=== PATIENT | male | born 1935 | race Caucasian/White ===

== ENCOUNTER 2016-08-11 13:55 | Inpatient (IN) | payer OTHER, MEDICARE ==
[~2016-08-11] VITALS: Ht 165.1 cm; Wt 90.7 kg
[~2016-08-11 13:55] MED LIST: ASPI-618 PO; CYCL5TAB PO; DEXL60CA3 PO; FERR325T22 PO; FURO20TA4 PO; GABA-536 PO; LOSA50TA21 PO
[2016-08-11 14:54] LABS: *BILIRUBIN,URIN NEGATIVE (NEGATIVE); *BLOOD, URINE 2+ (NEGATIVE); *CLARITY,URINE CLEAR (CLEAR); *COLOR,URINE YELLOW (YELLOW); *KETONES,URINE NEGATIVE (NEGATIVE); *PROTEIN,URINE 1+ (NEGATIVE); *UROBILINOGEN,URINE 0.2 E.U./dl (NORMAL); LEUKOCYTE ESTERASE ,URINE NEGATIVE (NEGATIVE); NITRITE, URINE NEGATIVE (NEGATIVE); PH,URINE 5.5 (5.0-8.0); UGLUCOSE NEGATIVE (NEGATIVE)
[2016-08-11 14:58] LABS: BASOPHILS % (AUTO) 0.3 % (0.0-2.0); EOSINOPHILS # (AUTO) 0.2 K/uL (0.0-0.7); EOSINOPHILS % (AUTO) 1.9 % (0.0-7.0); HEMATOCRIT 39.3 % (36.7-47.1); HEMOGLOBIN 13.4 g/dL (12.5-16.3); LYMPHOCYTES % (AUTO) 24.6 % (20.5-51.5); MEAN CORPUSCULAR HEMOGLOBIN 29.8 uug (23.8-33.4); MEAN CORPUSCULAR HGB CONC 34 g/dL (32.5-36.3); MONOCYTES # (AUTO) 0.5 K/uL (2.0-10.0); MONOCYTES % (AUTO) 6.3 % (0.0-11.0); NEUTROPHILS # (AUTO) 5.4 K/uL (1.8-8.9); NEUTROPHILS % (AUTO) 66.9 % (38.5-71.5); PLATELET COUNT (AUTO) 130 K/uL (152-348); RED BLOOD CELL COUNT(AUTO) 4.47 MIL/uL (4.06-5.63); RED CELL DISTRIBUTION WIDTH 14.1 % (12.1-16.2); WHITE BLOOD COUNT (AUTO) 8.1 K/uL (3.6-10.2)
[2016-08-11] MEDS ORDERED: AMPICILLIN IV 3 G in IV NORMAL SALINE 100 ML IV ONE (15:00)
[2016-08-11] MEDS ORDERED: KETOROLAC TROMETHAMINE 30 MG INJ IM ONE (15:00)
[2016-08-11] MEDS ORDERED: KETOROLAC TROMETHAMINE 60 MG INJ IM ONE (15:00)
[2016-08-11 15:06] LABS: CALCIUM 9.2 mg/dL (8.5-10.1); POTASSIUM 4.2 mmol/L (3.5-5.1)
[2016-08-11 15:17] LABS: MUCUS,URINE FEW /LPF (0-FEW); WBC,URINE 0-3 /HPF (0-3)
[2016-08-11] MEDS ORDERED: KETOROLAC TROMETHAMINE 30 MG INJ ONE (15:22)
[2016-08-11] MEDS ORDERED: PIPERACILLIN/TAZOBACTAM/D5W 50 ML IV ONE (15:22)
[2016-08-11 15:23] LABS: ALBUMIN 3.8 g/dL (3.4-5.0); BILIRUBIN,TOTAL 0.4 mg/dL (0.2-1.0); TOTAL PROTEIN, SERUM 7.9 g/dL (6.4-8.2)
--- NOTE | 2016-08-11 16:05 | NUR ---
Attempted to give report to tele floor, assigned nurse to call back.
[2016-08-11] MEDS ORDERED: HYDROCODONE/APAP 5-325MG TABLET PO ONE (16:15)
[2016-08-11] MEDS ORDERED: HYDROCODONE/APAP 5-325MG TABLET ONE (16:22)
--- NOTE | 2016-08-11 16:35 | NUR ---
Attempted to give report to tele floor again, assigned nurse unable to take report at this time per charge nurse. Pt resting in [facility] with NAD noted.
--- NOTE | 2016-08-11 16:42 | NUR ---
SBAR report given to tele floor.
[2016-08-11] MEDS ORDERED: TEMAZEPAM 7.5 MG CAPSULE PO PRN (16:45)
[2016-08-11] MEDS ORDERED: Z GUARD REMEDY PASTE 57 GM TUBE TOP PRN (16:45)
[2016-08-11] MEDS ORDERED: ACETAMINOPHEN 325 MG TABLET PO PRN (16:45)
[2016-08-11] MEDS ORDERED: MORPHINE SULFATE 2 MG/1 ML DISP.SYRIN IV PRN (16:45)
[2016-08-11] MEDS ORDERED: MAGNESIUM HYDROXIDE 30 ML LIQUID UDC PO PRN (16:45)
[2016-08-11] MEDS ORDERED: ONDANSETRON 4 MG/2 ML VIAL IV PRN (16:45)
--- NOTE | 2016-08-11 16:55 | NUR ---
Pt trans to tele, NAD noted.
--- NOTE | 2016-08-11 16:57 | NUR ---
Clinical Pharmacy Note: Vancomycin Dosing per Pharmacy Subjective: Vancomycin IV to start on this 81 male patient for cellulitis. Objective: BUN 15/Scr 1.0 WBC 8.1 Temperature 97.6 Assessment/Plan: Will start vancomycin 1250mg IVPB Q19hr for a predicted vancomycin steady state trough level of 15.6 mcg/ml. Will draw a vancomycin trough level prior to the 4th dose of vancomycin (not ordered yet). Will monitor renal function and adjust vancomycin dose, if needed, should renal function change significantly. Will follow daily.
--- NOTE | 2016-08-11 17:30 | NUR ---
Patient admitted from emergency with complaint of left hand pain. Patient admitting diagnosis of Cellulitis of left hand. Patient also reports swelling of lower extremities. Latvian speaking. Grandson at bedside.
[2016-08-11] MEDS: VANCOMYCIN IV 1,250 MG in IV DEXTROSE 5% 500 ML IV SCH (17:52)
[2016-08-11] MEDS ORDERED: Medication Not On Formulary EA (Cyclobenzaprine Hcl 10 MG) PO SCH (18:00)
[2016-08-11 19:00] VITALS: BP 133/78
--- NOTE | 2016-08-11 19:40 | NUR ---
nsg: pt received a/o x 4, no acute distress noted. lungs sound clear to auscultate. tele, SR. denies discomfort at this time. family at the bedside.
[2016-08-11] MEDS: GABAPENTIN 400 MG CAPSULE PO SCH (21:24)
[2016-08-11] MEDS: LOSARTAN POTASSIUM 50 MG TABLET PO SCH (21:25)
[2016-08-11] MEDS: CYCLOBENZAPRINE HCL 10 MG TABLET PO SCH (21:25)
[2016-08-11 23:59] VITALS: BP 149/92
--- NOTE | 2016-08-12 | NUR ---
nsg: no change in condition. SR yenny.
[2016-08-12 04:00] VITALS: BP 142/90
[2016-08-12 06:46] LABS: ALBUMIN 3.2 g/dL (3.4-5.0); BILIRUBIN,TOTAL 0.5 mg/dL (0.2-1.0); CALCIUM 9.3 mg/dL (8.5-10.1); CREATININE 1.2 mg/dL (0.6-1.3); PHOSPHOROUS 4.8 mg/dL (2.5-4.9); POTASSIUM 4.9 mmol/L (3.5-5.1)
[2016-08-12 06:55] LABS: BASOPHILS % (AUTO) 0.4 % (0.0-2.0); EOSINOPHILS # (AUTO) 0.2 K/uL (0.0-0.7); EOSINOPHILS % (AUTO) 2.7 % (0.0-7.0); HEMATOCRIT 36.5 % (36.7-47.1); HEMOGLOBIN 12.4 g/dL (12.5-16.3); LYMPHOCYTES # (AUTO) 1.6 K/uL (20.0-40.0); LYMPHOCYTES % (AUTO) 29.2 % (20.5-51.5); MEAN CORPUSCULAR HEMOGLOBIN 29.8 uug (23.8-33.4); MEAN CORPUSCULAR HGB CONC 34 g/dL (32.5-36.3); MONOCYTES # (AUTO) 0.4 K/uL (2.0-10.0); MONOCYTES % (AUTO) 7.9 % (0.0-11.0); NEUTROPHILS # (AUTO) 3.4 K/uL (1.8-8.9); NEUTROPHILS % (AUTO) 59.8 % (38.5-71.5); PLATELET COUNT (AUTO) 120 K/uL (152-348); RED BLOOD CELL COUNT(AUTO) 4.15 MIL/uL (4.06-5.63); RED CELL DISTRIBUTION WIDTH 14.1 % (12.1-16.2); WHITE BLOOD COUNT (AUTO) 5.6 K/uL (3.6-10.2)
[2016-08-12] MEDS: PANTOPRAZOLE SODIUM 40 MG TABLET.DR PO SCH (06:59)
[2016-08-12] MEDS: GABAPENTIN 400 MG CAPSULE PO SCH ×2 (09:00→21:35)
[2016-08-12] MEDS: FUROSEMIDE 40 MG TABLET PO SCH (09:00)
[2016-08-12] MEDS: FERROUS GLUCONATE 324 MG TABLET PO SCH (09:00)
[2016-08-12] MEDS: LOSARTAN POTASSIUM 50 MG TABLET PO SCH ×2 (09:00→21:39)
[2016-08-12] MEDS ORDERED: Medication Not On Formulary EA (Ferrous Gluconate 324 MG) PO SCH (09:00)
[2016-08-12] MEDS ORDERED: FUROSEMIDE 20 MG TABLET PO SCH (09:00)
[2016-08-12] MEDS: ASPIRIN EC 81 MG TABLET.DR PO SCH (09:00)
[2016-08-12 12:13] VITALS: BP 120/70
[2016-08-12] MEDS: VANCOMYCIN IV 1,250 MG in IV DEXTROSE 5% 500 ML IV SCH (13:42)
--- NOTE | 2016-08-12 14:56 | NUR ---
Clinical Pharmacy Note: Vancomycin Dosing per Pharmacy Subjective: Vancomycin IV to continue on this 81 y/o male patient for cellulitis. Objective: BUN 18/Scr 1.2 WBC 5.6 Temperature 97.6 Assessment/Plan: Will continue vancomycin 1250mg IVPB Q19hr for a predicted vancomycin steady state trough level of 15.6 mcg/ml. Will draw a vancomycin trough level prior to the 4th dose of vancomycin (not ordered yet). Will monitor renal function and adjust vancomycin dose, if needed, should renal function change significantly. Will follow daily.
[2016-08-12] MEDS: HYDROCODONE/APAP 5-325MG TABLET PO PRN (17:31)
[2016-08-12 20:00] VITALS: BP 145/78
[2016-08-12] MEDS: CYCLOBENZAPRINE HCL 10 MG TABLET PO SCH (21:36)
[2016-08-13 05:00] VITALS: BP 141/81
--- NOTE | 2016-08-13 06:00 | NUR ---
Patient slept well, no acute distress, no c/o of chest pain, sob, nausea, dizziness, frequently ambulates. Patient was visited by family last night. Instructed patient to use call light when assistance is needed. Bed in low position, bed alarm on. Will continue to monitor.
[2016-08-13 06:07] LABS: BASOPHILS % (AUTO) 0.4 % (0.0-2.0); EOSINOPHILS # (AUTO) 0.2 K/uL (0.0-0.7); EOSINOPHILS % (AUTO) 3.5 % (0.0-7.0); HEMATOCRIT 35.9 % (36.7-47.1); HEMOGLOBIN 12.3 g/dL (12.5-16.3); LYMPHOCYTES # (AUTO) 1.6 K/uL (20.0-40.0); LYMPHOCYTES % (AUTO) 30.8 % (20.5-51.5); MEAN CORPUSCULAR HEMOGLOBIN 30.2 uug (23.8-33.4); MEAN CORPUSCULAR HGB CONC 34 g/dL (32.5-36.3); MONOCYTES # (AUTO) 0.5 K/uL (2.0-10.0); MONOCYTES % (AUTO) 9.5 % (0.0-11.0); NEUTROPHILS # (AUTO) 2.9 K/uL (1.8-8.9); NEUTROPHILS % (AUTO) 55.8 % (38.5-71.5); PLATELET COUNT (AUTO) 124 K/uL (152-348); RED BLOOD CELL COUNT(AUTO) 4.09 MIL/uL (4.06-5.63); RED CELL DISTRIBUTION WIDTH 14.1 % (12.1-16.2); WHITE BLOOD COUNT (AUTO) 5.2 K/uL (3.6-10.2)
[2016-08-13 06:19] LABS: CALCIUM 8.4 mg/dL (8.5-10.1); CREATININE 0.9 mg/dL (0.6-1.3); POTASSIUM 3.8 mmol/L (3.5-5.1)
[2016-08-13] MEDS: PANTOPRAZOLE SODIUM 40 MG TABLET.DR PO SCH (06:24)
[2016-08-13 08:44] LABS: EOSINOPHILS % (MANUAL) 3 % (0-8); LYMPHOCYTES % (MANUAL) 30 % (20-40); MONOCYTES % (MANUAL) 9 % (2-10); NEUTROPHILS % (MANUAL) 58 % (42-75)
[2016-08-13 08:45] LABS: PLATELET ESTIMATE ADEQUATE
[2016-08-13] MEDS: VANCOMYCIN IV 1,250 MG in IV DEXTROSE 5% 500 ML IV SCH (09:00)
[2016-08-13] MEDS: GABAPENTIN 400 MG CAPSULE PO SCH ×2 (09:08→20:47)
[2016-08-13] MEDS: FERROUS GLUCONATE 324 MG TABLET PO SCH (09:08)
[2016-08-13] MEDS: FUROSEMIDE 40 MG TABLET PO SCH (09:08)
[2016-08-13] MEDS: ASPIRIN EC 81 MG TABLET.DR PO SCH (09:08)
[2016-08-13] MEDS: LOSARTAN POTASSIUM 50 MG TABLET PO SCH ×2 (09:09→20:48)
[2016-08-13 12:00] VITALS: BP 146/79
[2016-08-13] MEDS ORDERED: KETOROLAC TROMETHAMINE 15 MG INJ IVP PRN (13:15)
[2016-08-13] MEDS: CEFTRIAXONE 1 G in IV DEXTROSE 5% 50 ML IV SCH (13:59)
[2016-08-13 15:52] VITALS: BP 120/65
--- NOTE | 2016-08-13 16:20 | NUR ---
Clinical Pharmacy Note: Vancomycin Dosing per Pharmacy Subjective: Vancomycin IV to continue on this 81 y/o male patient for cellulitis. Objective: BUN 18/Scr 0.9 WBC 5.2 Temperature 97.4 Assessment/Plan: Will continue vancomycin 1250mg IVPB Q19hr for a predicted vancomycin steady state trough level of 15.6 mcg/ml. Will draw a vancomycin trough level prior to the 4th dose of vancomycin (ordered for tomorrow @ 0230). RN to hold dose if trough >20. Will check level in am and redose as appropriate. Will monitor renal function and adjust vancomycin dose, if needed, should renal function change significantly. Will follow daily.
[2016-08-13 19:00] VITALS: BP 135/89
--- NOTE | 2016-08-13 19:07 | NUR ---
PT IS LAYING IN BED COMFORTABLY. MASK IS ON 10L. NO S/S OF RESPIRATORY DISTRESS NOTED. NO PAIN REPORTED. MIDLINE IS INTACT/PATENT. ALL SAFETY NEEDS ARE MET. AYALA IS DRAINS YELLOW CLEAR URINE. Addendum: 08/13/16 at 1909 by LEVAR DIAZ RN PT IS ON ROOM AIR. O2 SAT IS WNL. IV PERIPHERAL INTACT/PATENT. NO AYALA. PT IS ABLE TO AMBULATE TO THE BATHROOM. GAIT IS STEADY. PT AMBULATES IN HALLWAY.
[2016-08-13] MEDS: CYCLOBENZAPRINE HCL 10 MG TABLET PO SCH (20:47)
[2016-08-14] MEDS: VANCOMYCIN IV 1,250 MG in IV DEXTROSE 5% 500 ML IV SCH (03:17)
[2016-08-14 04:32] VITALS: BP 134/82
--- NOTE | 2016-08-14 06:00 | NUR ---
END OF SHIFT REPORT:PATIENT RESTING WELL, NO COMPLAINT OF PAIN,BILATERAL EXTREMITIES SLIGHTLY EDEMATOUS NOTED,PATIENT IS AFEBRILE, SPO2 98% ON ROOM AIR, BILATERAL BREATH SOUND CLEAR,NO ACUTE DISTRESS NOTED.
[2016-08-14] MEDS: PANTOPRAZOLE SODIUM 40 MG TABLET.DR PO SCH (06:14)
[2016-08-14 07:03] LABS: CALCIUM 8.1 mg/dL (8.5-10.1); POTASSIUM 3.6 mmol/L (3.5-5.1)
[2016-08-14 07:46] LABS: BASOPHILS % (AUTO) 0.4 % (0.0-2.0); EOSINOPHILS # (AUTO) 0.2 K/uL (0.0-0.7); EOSINOPHILS % (AUTO) 3.1 % (0.0-7.0); HEMATOCRIT 35.2 % (36.7-47.1); HEMOGLOBIN 11.9 g/dL (12.5-16.3); LYMPHOCYTES # (AUTO) 1.6 K/uL (20.0-40.0); LYMPHOCYTES % (AUTO) 31.1 % (20.5-51.5); MEAN CORPUSCULAR HEMOGLOBIN 29.8 uug (23.8-33.4); MEAN CORPUSCULAR HGB CONC 34 g/dL (32.5-36.3); MONOCYTES # (AUTO) 0.4 K/uL (2.0-10.0); MONOCYTES % (AUTO) 7.4 % (0.0-11.0); RED BLOOD CELL COUNT(AUTO) 3.99 MIL/uL (4.06-5.63); WHITE BLOOD COUNT (AUTO) 5.2 K/uL (3.6-10.2)
[2016-08-14 07:48] LABS: PLATELET COUNT (AUTO) 114 K/uL (152-348)
--- NOTE | 2016-08-14 08:00 | NUR ---
AWAKE COOPERATE WELL HENDRICKS UP AMB SELF WELL NO PAIN OR SOB RESTING WITH CALL LIGHT IN REACH BLE AND UPPER EXT WAS STILL SWELLING 1+ KEEP ELEVATED ON PILLOW
[2016-08-14] MEDS: GABAPENTIN 400 MG CAPSULE PO SCH (08:19)
[2016-08-14] MEDS: FUROSEMIDE 40 MG TABLET PO SCH (08:19)
[2016-08-14] MEDS: ASPIRIN EC 81 MG TABLET.DR PO SCH (08:19)
[2016-08-14] MEDS: FERROUS GLUCONATE 324 MG TABLET PO SCH (08:19)
[2016-08-14] MEDS: LOSARTAN POTASSIUM 50 MG TABLET PO SCH (08:20)
--- NOTE | 2016-08-14 10:30 | NUR ---
DR MENJIVAR,V SEEN PATIENT AND LAB RESULT THIS AM ORDER OK TO D/C HOME TODAY PT SON HERMILA WAS CALL TO INFORM AND D/C INSTRUCTION GIVEN STATE WILL COME AND PICK PATIENT UP AFTER LUNCH HL WAS D/C PRIOR D/C HOME AND PATIENT WAS INFORM OF DISCHARGE,VERBALIZES UNDERSTAND
[2016-08-14] MEDS: HYDROCODONE/APAP 5-325MG TABLET PO PRN (11:42)
[2016-08-14 11:46] VITALS: BP 151/88
[2016-08-14] MEDS: CEFTRIAXONE 1 G in IV DEXTROSE 5% 50 ML IV SCH (13:15)
--- NOTE | 2016-08-14 13:15 | NUR ---
D/C HOME TODAY WITH HIS BELONGING CONDITION STABLE PHAMACY ALREADY INSTRUCTION ON PRECKAREN MEDICATION TO FAMILY ,VERBALIZES UNDERSTAND
--- NOTE | 2016-08-14 14:27 | NUR ---
Clinical Pharmacy Note: Vancomycin Dosing per Pharmacy Subjective: Vancomycin IV to continue on this 81 y/o male patient for cellulitis. Objective: BUN 16/Scr 1.0 WBC 5.2 Temperature 97.6 Vancomycin trough level: 10.2 Assessment/Plan: Since vancomycin trough level is 10.2, will change vancomycin dose from vancomycin 1250mg IVPB Q19hr to vancomycin 1250mg IVPB q15h for a predicted vancomycin steady state trough level of 15 mcg/ml. Second dose is due today at 1800. Will draw a vancomycin trough level prior to the 4th dose of vancomycin (level not yet ordered). Will monitor renal function and adjust vancomycin dose, if needed, should renal function change significantly. Will follow daily.
[2016-08-14] MEDS ORDERED: VANCOMYCIN IV 1,250 MG in IV DEXTROSE 5% 500 ML IV SCH (18:00)
== END 2016-08-14 13:20 | disposition home or self-care (01) | DRG 383 ==
LOC: ER 13:55 → TELE 16:57 → MED 08-12 15:18
PROVIDERS: ADMIT Family Medicine; ATTEND Family Medicine
DX: L03.114 Cellulitis of left upper limb (principal); I11.0 Hypertensive heart disease with heart failure; I50.32 Chronic diastolic (congestive) heart failure; I87.8 Other specified disorders of veins; K21.9 Gastro-esophageal reflux disease without esophagitis; M19.90 Unspecified osteoarthritis, unspecified site; Z79.82 Long term (current) use of aspirin
CPT/HCPCS: 36415; 70030-TC; 71010; 73090; 73120; 83735; 84100; 85025; 85610; 85651; 86140; 87040; 93005; 93307; A4663; J0696; J1885; J2270; J2405; J2543; J3370; J3490; J7050; J7060

== ENCOUNTER 2016-12-18 22:24 | Emergency (ER) | payer MEDICARE, OTHER ==
[~2016-12-18] VITALS: Ht 160 cm; Wt 86.2 kg
--- NOTE | 2016-12-18 22:48 | NUR ---
Pt ambulated to room with steady gait. Pt c/o pain and increased swelling to BLE. Pt seen by Dr. Jackson. Awaiting xray and lab draw
[2016-12-18 23:04] LABS: BASOPHILS % (AUTO) 0.6 % (0.0-2.0); EOSINOPHILS # (AUTO) 0.1 K/uL (0.0-0.7); EOSINOPHILS % (AUTO) 2.1 % (0.0-7.0); HEMATOCRIT 36.6 % (40-50); HEMOGLOBIN 12.5 G/DL (14.0-18.0); LYMPHOCYTES # (AUTO) 1.7 K/UL (0.8-4.8); LYMPHOCYTES % (AUTO) 26.6 % (20.5-51.5); MEAN CORPUSCULAR HEMOGLOBIN 30.2 UUG (27.0-31.0); MEAN CORPUSCULAR HGB CONC 34 g/dL (32.0-37.0); MEAN CORPUSCULAR VOLUME 88.3 FL (82.0-92.0); MONOCYTES # (AUTO) 0.4 K/UL (0.1-1.30); MONOCYTES % (AUTO) 6.6 % (0.0-11.0); NEUTROPHILS # (AUTO) 4.3 K/UL (1.8-8.9); NEUTROPHILS % (AUTO) 64.1 % (38.5-71.5); PLATELET COUNT (AUTO) 133 K/UL (150-450); RED BLOOD CELL COUNT(AUTO) 4.15 MIL/UL (4.7-6.1); WHITE BLOOD COUNT (AUTO) 6.5 K/UL (4.0-11.2)
[2016-12-18 23:13] LABS: CARBON DIOXIDE 27 mmol/L (21-32); CHLORIDE 106 mmol/L (98-107); CREATININE 1.3 mg/dL (0.6-1.3); GLUCOSE 155 mg/dL (74-106); POTASSIUM 3.6 mmol/L (3.5-5.1); UREA NITROGEN, BLOOD 25 mg/dL (7-18)
[2016-12-18 23:26] LABS: ALANINE AMINOTRANSFERASE 39 U/L (16-63); ALKALINE PHOSPHATASE 77 U/L (50-136); ASPARTATE AMINOTRANSFERASE 34 U/L (15-37); BILIRUBIN,DIRECT 0.1 mg/dL (0.0-0.2); BILIRUBIN,TOTAL 0.4 mg/dL (0.2-1.0); TOTAL PROTEIN, SERUM 7.4 g/dL (6.4-8.2)
--- NOTE | 2016-12-18 23:29 | NUR ---
pt c/o severe pain, Dr. Jackson notified and pt medicated. Will monitor for effects of medication. Pt resting in position of comfort for self. Resp even and unlabored. No obvious signs of distress at this time
[2016-12-18] MEDS ORDERED: ACETAMINOPHEN ES 500 MG TABLET PO ONE (23:30)
[2016-12-18 23:39] LABS: *CLARITY,URINE CLEAR (CLEAR); *COLOR,URINE YELLOW (YELLOW); PH,URINE 5.5 (5.0-8.0)
[2016-12-18 23:40] LABS: *BILIRUBIN,URIN NEGATIVE (NEGATIVE); *BLOOD, URINE 1+ (NEGATIVE); *KETONES,URINE NEGATIVE (NEGATIVE); *PROTEIN,URINE NEGATIVE (NEGATIVE); *UROBILINOGEN,URINE 0.2 E.U./dl (NORMAL); LEUKOCYTE ESTERASE ,URINE NEGATIVE (NEGATIVE); NITRITE, URINE NEGATIVE (NEGATIVE); UGLUCOSE NEGATIVE (NEGATIVE)
[2016-12-18] MEDS ORDERED: ACETAMINOPHEN ES 500 MG TABLET ONE (23:40)
[2016-12-18 23:42] LABS: BACTERIA,URINE NONE SEEN /HPF (NONE SEEN); RBC,URINE 0-3 /HPF (0-3); SQUAMOUS EPITHELIAL CELL,UR NONE SEEN /HPF (NONE SEEN); WBC,URINE 0-3 /HPF (0-3)
--- NOTE | 2016-12-18 23:49 | NUR ---
Pt stable for discharge per MD. Pt and son given ACI. Both verbalized understanding of dc instructions. Pt ambulated out of er with steady gait.
[2016-12-18 23:52] VITALS: BP 153/68
== END 2016-12-18 23:52 | disposition home or self-care (01) ==
LOC: ER 22:29
DX: I11.0 Hypertensive heart disease with heart failure (principal); I50.9 Heart failure, unspecified; R60.9 Edema, unspecified; M19.90 Unspecified osteoarthritis, unspecified site; K21.9 Gastro-esophageal reflux disease without esophagitis; E11.9 Type 2 diabetes mellitus without complications; Z79.82 Long term (current) use of aspirin
CPT/HCPCS: 36415; 71010; 80048; 80076; 81001; 83880; 85025; 99285; A4663

== ENCOUNTER 2017-06-27 21:18 | Inpatient (IN) | payer OTHER, MEDICARE ==
[~2017-06-27] VITALS: Ht 162.6 cm; Wt 85.3 kg
[2017-06-27] MEDS ORDERED: IBUP-1955 PO (21:54)
[2017-06-27] MEDS ORDERED: LOSA50TA21 PO (21:54)
[2017-06-27] MEDS ORDERED: PENT400T12 PO (21:54)
[2017-06-27] MEDS ORDERED: GABA-534 PO (21:54)
[2017-06-27] MEDS ORDERED: ASPI81TA31 PO (21:54)
[2017-06-27] MEDS ORDERED: PREG25CA PO (21:54)
[2017-06-27] MEDS ORDERED: HYDR-3980 PO (21:54)
[2017-06-27] MEDS ORDERED: OMEP20TA5 PO (21:54)
[2017-06-27] MEDS ORDERED: POTA8TAB3 PO (21:54)
[2017-06-27] MEDS ORDERED: FURO-151 PO (21:54)
[2017-06-27] MEDS ORDERED: KETOROLAC TROMETHAMINE 15 MG INJ IV ONE (22:00)
[2017-06-27] MEDS ORDERED: KETOROLAC TROMETHAMINE 15 MG INJ ONE (22:19)
[2017-06-27 22:21] LABS: BASOPHILS # (AUTO) 0.1 K/uL (0.0-8.0); BASOPHILS % (AUTO) 0.7 % (0.0-2.0); EOSINOPHILS # (AUTO) 0.1 K/uL (0.0-0.7); EOSINOPHILS % (AUTO) 1.2 % (0.0-7.0); HEMATOCRIT 35.8 % (36.7-47.1); HEMOGLOBIN 12.3 g/dL (12.5-16.3); LYMPHOCYTES # (AUTO) 1.7 K/uL (20.0-40.0); LYMPHOCYTES % (AUTO) 22.4 % (20.5-51.5); MEAN CORPUSCULAR HEMOGLOBIN 29.9 uug (23.8-33.4); MEAN CORPUSCULAR HGB CONC 35 g/dL (32.5-36.3); MEAN CORPUSCULAR VOLUME 86.7 fL (73.0-96.2); MONOCYTES # (AUTO) 0.8 K/uL (2.0-10.0); MONOCYTES % (AUTO) 9.8 % (0.0-11.0); NEUTROPHILS # (AUTO) 5.1 K/uL (1.8-8.9); NEUTROPHILS % (AUTO) 65.9 % (38.5-71.5); PLATELET COUNT (AUTO) 125 K/uL (152-348); RED BLOOD CELL COUNT(AUTO) 4.13 MIL/uL (4.06-5.63); WHITE BLOOD COUNT (AUTO) 7.8 K/uL (3.6-10.2)
--- NOTE | 2017-06-27 22:22 | NUR ---
Radiology at bedside for US.
[2017-06-27 22:27] LABS: CARBON DIOXIDE 30 mmol/L (21-32); CHLORIDE 102 mmol/L (98-107); CREATININE 1.4 mg/dL (0.6-1.3); GLUCOSE 123 mg/dL (74-106); POTASSIUM 4.4 mmol/L (3.5-5.1); UREA NITROGEN, BLOOD 26 mg/dL (7-18)
[2017-06-27 22:40] LABS: ALANINE AMINOTRANSFERASE 22 U/L (16-63); ALKALINE PHOSPHATASE 61 U/L (50-136); ASPARTATE AMINOTRANSFERASE 18 U/L (15-37); BILIRUBIN,DIRECT 0.2 mg/dL (0.0-0.2); BILIRUBIN,TOTAL 0.7 mg/dL (0.2-1.0); TOTAL PROTEIN, SERUM 7.7 g/dL (6.4-8.2)
[2017-06-27] MEDS ORDERED: ENOXAPARIN SODIUM 80 MG/0.8 ML DISP.SYRIN SQ ONE (23:15)
[2017-06-27] MEDS ORDERED: ENOXAPARIN SODIUM 100 MG/ML DISP.SYRIN SQ ONE (23:32)
--- NOTE | 2017-06-27 23:38 | NUR ---
LOVENOX GIVEN. MED VERIFIED BY HUYEN DAVID.
[2017-06-28] MEDS ORDERED: hydrALAZINE HCL 25 MG TABLET PO PRN (00:15)
[2017-06-28] MEDS ORDERED: ACETAMINOPHEN 325 MG TABLET PO PRN (00:15)
--- NOTE | 2017-06-28 00:31 | NUR ---
PT IN BED. PT'S BROTHER AT BEDSIDE. PT COMPLAINING OF RT LEG PAIN. MD AWARE. PT DENIES DIFFICULTY BREATHING. NO SIGNS OF DISTRESS WITNESSED AT THIS TIME.
--- NOTE | 2017-06-28 01:39 | NUR ---
REPORT GIVEN TO 2ND FLOOR TELEMETRY NURSE, WILLIE PUGH
[2017-06-28 02:09] VITALS: BP 114/63
--- NOTE | 2017-06-28 02:09 | NUR ---
RECEIVED PT FROM ER VIA JR. ADMITTED AT TELE. SINUS RHYTHM. ALERT AND ORIENTEDX4. WELSH SPEAKING. SON AT BEDSIDE.IN NO ACUTE DISTRESS NOTED BUT COMPLAIN OF RIGHT LEG PAIN. FPC ASSESSMENT DONE. ADMISSION PROTOCOL FOLLOWED. BELONGING LIST DONE. NOTED RIGHT LOWER EXTREMITY DISCOLORATION. RIGHT UPPER LEG SWOLLEN NON-PITTING. SAFETY INITIATED. BED ALARM ON AND IN LOW POSITION. CALL LIGHT WITHIN REACH. WILL CONTINUE TO MONITOR.
[2017-06-28] MEDS: HYDROCODONE/APAP 10-325 MG TABLET PO PRN ×2 (02:29→16:30)
[2017-06-28] MEDS: ONDANSETRON 4 MG/2 ML VIAL IV PRN ×3 (03:03→19:41)
[2017-06-28 04:00] VITALS: BP 116/42
[2017-06-28] MEDS: PANTOPRAZOLE SODIUM 40 MG TABLET.DR PO SCH (06:25)
--- NOTE | 2017-06-28 06:28 | NUR ---
PT SHOWS NO SIGNS OF ACUTE DISTRESS. PT IV INTACT AND PATENT. PRESCRIBED MEDICATION GIVEN. PT TOLERATED IT WELL. CALL LIGHT WITHIN REACH. BED ALARM ON AND IN LOW POSITION. WILL ENDORSE TO DAYSHIFT NURSE.
[2017-06-28 06:50] LABS: ALANINE AMINOTRANSFERASE 16 U/L (16-63); ALKALINE PHOSPHATASE 55 U/L (50-136); ASPARTATE AMINOTRANSFERASE 20 U/L (15-37); BILIRUBIN,TOTAL 0.6 mg/dL (0.2-1.0); CARBON DIOXIDE 26 mmol/L (21-32); CHLORIDE 102 mmol/L (98-107); CHOLESTEROL 156 mg/dL (<200); CREATININE 1.3 mg/dL (0.6-1.3); GLUCOSE 186 mg/dL (74-106); HDL CHOLESTEROL 39 mg/dL (40-60); MAGNESIUM 1.9 mg/dL (1.8-2.4); PHOSPHOROUS 3.5 mg/dL (2.5-4.9); POTASSIUM 3.7 mmol/L (3.5-5.1); TOTAL PROTEIN, SERUM 6.8 g/dL (6.4-8.2); TRIGLYCERIDES 111 MG/DL (30-150); UREA NITROGEN, BLOOD 26 mg/dL (7-18)
[2017-06-28 06:59] LABS: THYROID STIMULATING HORMONE 1.604 mIU/mL (0.358-3.740)
[2017-06-28 07:05] LABS: BASOPHILS % (AUTO) 0.2 % (0.0-2.0); EOSINOPHILS # (AUTO) 0.1 K/uL (0.0-0.7); HEMATOCRIT 33.8 % (36.7-47.1); HEMOGLOBIN 11.6 g/dL (12.5-16.3); LYMPHOCYTES # (AUTO) 1.3 K/uL (20.0-40.0); MEAN CORPUSCULAR HEMOGLOBIN 29.9 uug (23.8-33.4); MEAN CORPUSCULAR HGB CONC 34 g/dL (32.5-36.3); MEAN CORPUSCULAR VOLUME 87.4 fL (73.0-96.2); MONOCYTES # (AUTO) 0.4 K/uL (2.0-10.0); MONOCYTES % (AUTO) 6.2 % (0.0-11.0); NEUTROPHILS # (AUTO) 4.9 K/uL (1.8-8.9); NEUTROPHILS % (AUTO) 73.6 % (38.5-71.5); PLATELET COUNT (AUTO) 115 K/uL (152-348); RED BLOOD CELL COUNT(AUTO) 3.86 MIL/uL (4.06-5.63); WHITE BLOOD COUNT (AUTO) 6.7 K/uL (3.6-10.2)
--- NOTE | 2017-06-28 07:20 | NUR ---
RECEIVED REPORT FROM ORACLE APPLICATIONS DEVELOPER NURSE, PATIENT IN BED AWAKE, NO EVIDENCE OF DISTRESS NOTED, BED IN LOW POSITION, SIDE RAILS UP X2, BED ALARM ON.
[2017-06-28] MEDS: ASPIRIN 81 MG TAB.CHEW PO SCH (08:52)
[2017-06-28] MEDS: GABAPENTIN 300 MG CAPSULE PO SCH ×3 (08:52→16:26)
[2017-06-28] MEDS: PREGABALIN 25 MG CAPSULE PO SCH ×2 (08:53→16:26)
[2017-06-28] MEDS: LOSARTAN POTASSIUM 50 MG TABLET PO SCH (08:55)
[2017-06-28] MEDS: PENTOXIFYLLINE 400 MG TABLET.SA PO SCH ×3 (08:55→21:34)
[2017-06-28] MEDS ORDERED: PENTOXIFYLLINE 400 MG TABLET.SA PO SCH (09:00)
[2017-06-28] MEDS ORDERED: ENOXAPARIN SODIUM 100 MG/ML DISP.SYRIN SQ SCH ×2 (09:00→21:00)
[2017-06-28 11:07] VITALS: BP 119/61
[2017-06-28 15:15] VITALS: BP 118/58
[2017-06-28] MEDS ORDERED: APIXABAN 5 MG TABLET PO SCH (18:30)
--- NOTE | 2017-06-28 19:25 | NUR ---
RECEIVED PT AWAKE, ALERTX3. PT TRIES TO WALK OUTSIDE HIS ROOM. ADVISED HIM TO STAY IN HIS ROOM AND HAVE BEDREST. PT SAID HIS DIZZY AND VOMITTED ONCE SO I LET HIM TRY TO LIE DOWN ON THE BED BUT HEAD OF BED ELEVATED. PT STILL TRYING TO GET OUT OF THE BED. CALLED HIS SON HERMILA TO TELL HIS DAD NOT TO WALK AROUND AND JUST LIE DOWN. WILL CONTINUE TO MONITOR.
--- NOTE | 2017-06-28 19:37 | NUR ---
PATIENT EXPERIENCED SEVERE PAIN, AND ANXIETY DUE TO SWELLING OF THE LEG. TWO EPISODES OF NAUSEA TREATED ONCE WITH ZOFRAN. PATIENT IS NON COMPLIANT AND WANTS TO CONTINUOUSLY WALK AROUND. ROCK SINGER PHONE USED TO EXPLAIN TO PATIENT THAT HE SHOULD REST AND NOT AMBULATE OFTEN FOR NOW. PATIENT MEDICATIONS FOR 1800 NOT IN BIN/CONTACTED PHARMACY TO BRING UP MEDS.
[2017-06-28 20:42] VITALS: BP 143/56
[2017-06-28] MEDS ORDERED: PNEUMOCOCCAL 23-VAL P-SAC VAC 0.5 ML VIAL IM ONE (21:00)
[2017-06-28] MEDS ORDERED: DOCUSATE SODIUM 250 MG CAPSULE PO SCH (21:00)
--- NOTE | 2017-06-28 21:30 | NUR ---
PNEUMOVAX PT REFUSED. CALLED HIS SON FOR THE CONSENT HE SAID JUST GIVE THE PNEUMO VACCINE TO HIS DAD SOME OTHER DAY BEFORE DISCHARGE.
[2017-06-28] MEDS: DOCUSATE SODIUM 100 MG CAPSULE PO SCH (21:34)
[2017-06-29] VITALS: BP 168/69
[2017-06-29 04:00] VITALS: BP 146/68
[2017-06-29] MEDS: HYDROCODONE/APAP 10-325 MG TABLET PO PRN (04:04)
[2017-06-29] MEDS: PANTOPRAZOLE SODIUM 40 MG TABLET.DR PO SCH (06:00)
--- NOTE | 2017-06-29 06:23 | NUR ---
PT SLEPT INTERMITTENTLY. PT IV INTACT AND PATENT. PT SHOWS NO SIGNS OF DISTRESS. PRESCRIBED MEDICATION GIVEN.PT TRYING TO WALK OUTSIDE HIS ROOM . ADVISED HIM TO STAY IN BED BECAUSE OF HIS CONDITION. PRESCRIBED MEDICATION GIVEN.PT TOLERATED IT WELL. PAIN MEDICATION GIVEN. CALL LIGHT WITHIN REACH. SAFETY AND COMFORT PROVIDED. WILL ENDORSE TO DAYSHIFT NURSE.
--- NOTE | 2017-06-29 07:25 | NUR ---
received report from cnc machinist 2nd shift nurse, patient in bed awake, patient reports pain in right upper thigh, bed in low position, side rails up x2.
[2017-06-29] MEDS: ASPIRIN 81 MG TAB.CHEW PO SCH (08:20)
[2017-06-29] MEDS: GABAPENTIN 300 MG CAPSULE PO SCH ×3 (08:20→18:53)
[2017-06-29] MEDS: LOSARTAN POTASSIUM 50 MG TABLET PO SCH (08:20)
[2017-06-29] MEDS: PENTOXIFYLLINE 400 MG TABLET.SA PO SCH ×3 (08:20→18:53)
[2017-06-29] MEDS: PREGABALIN 25 MG CAPSULE PO SCH ×2 (08:20→18:53)
[2017-06-29] MEDS ORDERED: MORPHINE SULFATE 2 MG/1 ML DISP.SYRIN IV PRN (10:00)
--- NOTE | 2017-06-29 10:00 | NUR ---
Contacted Dr. Tolentino about patients increased pain and intolerance for Lorida. Order received for 2mg Morphine IV PRN q4hr.
[2017-06-29 12:00] VITALS: BP 115/52
[2017-06-29] MEDS ORDERED: MORPHINE SULFATE 2 MG/1 ML DISP.SYRIN IV ONE (14:00)
[2017-06-29] MEDS ORDERED: MORPHINE SULFATE 4 MG/1 ML DISP.SYRIN IV ONE (14:00)
[2017-06-29] MEDS: ONDANSETRON 4 MG/2 ML VIAL IV PRN ×2 (14:47→21:02)
--- NOTE | 2017-06-29 15:00 | NUR ---
Patient reported experiencing increasing pain, and orders received for 4mg IV Morphine PRN q3hr. CT ordered by Dr. Tolentino, and additional lab tests.
[2017-06-29] MEDS ORDERED: COLCHICINE 0.6 MG TABLET PO SCH (16:15)
[2017-06-29] MEDS ORDERED: NORMAL SALINE FLUSH 10 ML DISP.SYRIN ONE (16:44)
[2017-06-29] MEDS ORDERED: IV NORMAL SALINE 100 ML ONE (16:44)
[2017-06-29] MEDS ORDERED: IOHEXOL 300MG/ML 100 ML INFUS..BTL ONE (16:44)
[2017-06-29] MEDS: MORPHINE SULFATE 4 MG/1 ML DISP.SYRIN IV PRN ×2 (16:58→20:13)
[2017-06-29 17:32] LABS: URIC ACID 5.2 mg/dL (3.5-7.2)
[2017-06-29 18:00] VITALS: BP 156/66
--- NOTE | 2017-06-29 18:00 | NUR ---
See Dr. Hoyos's notes on conversation with Radiologist and physician consult requests. Patient in bed at this time, continues to have severe pain. Family at bedside.
[2017-06-29 19:10] LABS: ALANINE AMINOTRANSFERASE 21 U/L (16-63); ALKALINE PHOSPHATASE 51 U/L (50-136); ASPARTATE AMINOTRANSFERASE 22 U/L (15-37); BASOPHILS % (AUTO) 0.2 % (0.0-2.0); BILIRUBIN,TOTAL 0.5 mg/dL (0.2-1.0); CARBON DIOXIDE 27 mmol/L (21-32); CHLORIDE 102 mmol/L (98-107); CREATINE KINASE, TOTAL 173 U/L (39-308); CREATININE 0.9 mg/dL (0.6-1.3); EOSINOPHILS % (AUTO) 0.5 % (0.0-7.0); GLUCOSE 131 mg/dL (74-106); HEMATOCRIT 31.6 % (36.7-47.1); HEMOGLOBIN 10.4 g/dL (12.5-16.3); LYMPHOCYTES # (AUTO) 0.8 K/uL (20.0-40.0); MEAN CORPUSCULAR HEMOGLOBIN 28.8 uug (23.8-33.4); MEAN CORPUSCULAR HGB CONC 33 g/dL (32.5-36.3); MEAN CORPUSCULAR VOLUME 87.1 fL (73.0-96.2); MONOCYTES # (AUTO) 0.4 K/uL (2.0-10.0); MONOCYTES % (AUTO) 6.1 % (0.0-11.0); NEUTROPHILS # (AUTO) 5.5 K/uL (1.8-8.9); NEUTROPHILS % (AUTO) 81.2 % (38.5-71.5); PLATELET COUNT (AUTO) 123 K/uL (152-348); POTASSIUM 4.3 mmol/L (3.5-5.1); RED BLOOD CELL COUNT(AUTO) 3.62 MIL/uL (4.06-5.63); TOTAL PROTEIN, SERUM 7.2 g/dL (6.4-8.2); UREA NITROGEN, BLOOD 16 mg/dL (7-18); WHITE BLOOD COUNT (AUTO) 6.7 K/uL (3.6-10.2)
[2017-06-29 20:00] VITALS: BP 121/90
--- NOTE | 2017-06-29 20:00 | NUR ---
Received pt sitting up in bed complaining of pain on the right thigh. Right thigh noted to be swollen and right lower leg noted to have some discoloration. Pt instructed to remain bed rest with family at bedside. Will continue to monitor. Pain management provided. Bed in low, locked position. Call light within reach.
[2017-06-29] MEDS: DOCUSATE SODIUM 100 MG CAPSULE PO SCH (20:09)
--- NOTE | 2017-06-29 20:30 | NUR ---
Monitoring pulse on Right foot via doppler q4h. Noted to have good circulation and strong pulses.
--- NOTE | 2017-06-29 20:45 | NUR ---
Per charge nurse, [facility] and [facility] called for higher level care. Family made aware. Will continue to monitor.
[2017-06-29] MEDS ORDERED: SODIUM BICARBONATE 8.4% 50 MEQ in IV 1/2NS 1000 ML 1,000 ML IV PRN (21:45)
--- NOTE | 2017-06-29 22:00 | NUR ---
Spoke to Erwin from [facility] regarding transfer for higher level care. Face sheet, H&P and lower extremity CT results faxed to [facility].
[2017-06-29] MEDS ORDERED: ENOXAPARIN SODIUM 100 MG/ML DISP.SYRIN SQ ONE ×2 (22:30→23:54)
--- NOTE | 2017-06-30 00:10 | NUR ---
Pt remains to be AAO x4 at this time. Right dorsal pedis pulse noted to be present and audible via doppler. Capillary refill <3 seconds. Instructed to elevate bilateral lower extremities. Will continue to monitor.
[2017-06-30] MEDS ORDERED: SODIUM BICARBONATE 8.4% 50 MEQ/50 ML DISP.SYRIN IV ONE (01:23)
[2017-06-30] MEDS: MORPHINE SULFATE 4 MG/1 ML DISP.SYRIN IV PRN ×2 (01:50→10:16)
[2017-06-30 06:00] VITALS: BP 111/56
[2017-06-30] MEDS: PANTOPRAZOLE SODIUM 40 MG TABLET.DR PO SCH (06:27)
[2017-06-30 06:39] LABS: BASOPHILS % (AUTO) 0.3 % (0.0-2.0); EOSINOPHILS # (AUTO) 0.1 K/uL (0.0-0.7); EOSINOPHILS % (AUTO) 1.6 % (0.0-7.0); HEMATOCRIT 29.1 % (36.7-47.1); LYMPHOCYTES # (AUTO) 1.6 K/uL (20.0-40.0); LYMPHOCYTES % (AUTO) 24.7 % (20.5-51.5); MEAN CORPUSCULAR HEMOGLOBIN 29.9 uug (23.8-33.4); MEAN CORPUSCULAR HGB CONC 34 g/dL (32.5-36.3); MONOCYTES # (AUTO) 0.5 K/uL (2.0-10.0); MONOCYTES % (AUTO) 7.7 % (0.0-11.0); NEUTROPHILS # (AUTO) 4.2 K/uL (1.8-8.9); NEUTROPHILS % (AUTO) 65.7 % (38.5-71.5); PLATELET COUNT (AUTO) 131 K/uL (152-348); RED BLOOD CELL COUNT(AUTO) 3.34 MIL/uL (4.06-5.63); WHITE BLOOD COUNT (AUTO) 6.4 K/uL (3.6-10.2)
[2017-06-30 06:46] LABS: CARBON DIOXIDE 30 mmol/L (21-32); CHLORIDE 102 mmol/L (98-107); CREATININE 0.9 mg/dL (0.6-1.3); GLUCOSE 94 mg/dL (74-106); MAGNESIUM 1.9 mg/dL (1.8-2.4); PHOSPHOROUS 3.6 mg/dL (2.5-4.9); POTASSIUM 3.9 mmol/L (3.5-5.1); UREA NITROGEN, BLOOD 15 mg/dL (7-18)
--- NOTE | 2017-06-30 07:00 | NUR ---
rReceived report from night baker nurse, patient in bed asleep, no signs of distress noted at this time. Son at bedside. Bed in low position, side rails up x2.
[2017-06-30] MEDS: PREGABALIN 25 MG CAPSULE PO SCH ×2 (08:30→17:55)
[2017-06-30] MEDS: GABAPENTIN 300 MG CAPSULE PO SCH ×3 (08:30→17:55)
[2017-06-30] MEDS: PENTOXIFYLLINE 400 MG TABLET.SA PO SCH ×3 (08:30→17:55)
[2017-06-30] MEDS: ASPIRIN 81 MG TAB.CHEW PO SCH (08:30)
--- NOTE | 2017-06-30 09:13 | NUR ---
Monitoring patients pulse on Right foot via doppler. Noted to have good circulation and strong pulses.
[2017-06-30 12:06] VITALS: BP 122/63
[2017-06-30] MEDS ORDERED: POLYMYXIN B SULFATE 500,000 UNITS, BACITRACIN 50,000 UNITS, NORMAL SALINE 20 ML MC ONE ×3 (12:15)
--- NOTE | 2017-06-30 12:40 | NUR ---
Patient was transferred to surgery after signing consent and pre-op checklist completed.
[2017-06-30] MEDS ORDERED: SUCCINYLCHOLINE CHLORIDE 200 MG/10 ML VIAL ONE (12:41)
[2017-06-30] MEDS ORDERED: FENTANYL CITRATE 100 MCG/2 ML AMPUL ONE (13:35)
[2017-06-30 14:44] VITALS: BP 121/64
--- NOTE | 2017-06-30 14:44 | NUR ---
Patient returned from surgery, vitals stable.
[2017-06-30] MEDS ORDERED: POTASSIUM CHLORIDE 20 MEQ in IV D5 1/2 NS 1000 ML 1,000 ML IV PRN (14:45)
[2017-06-30 16:10] VITALS: BP 127/49
[2017-06-30] MEDS ORDERED: CEFA1PIG IV (16:19)
[2017-06-30] MEDS ORDERED: HYDR25TA86 PO (16:19)
[2017-06-30] MEDS ORDERED: ENOX40DI SQ (16:19)
[2017-06-30] MEDS ORDERED: Morphine Sulfate Inj IV (16:19)
[2017-06-30] MEDS ORDERED: ACET325T53 PO (16:19)
[2017-06-30] MEDS ORDERED: DOCU100C36 PO (16:19)
[2017-06-30] MEDS ORDERED: ONDA4VIA30 IV (16:19)
[2017-06-30] MEDS ORDERED: PANT40TA2 PO (16:19)
--- NOTE | 2017-06-30 18:53 | NUR ---
Patient has been cooperative with care, and has tolerated the surgery this afternoon. Patient has not asked for pain meds since return to the med/surg floor. Currently patient in bed, no distress noted, bed in low position, side rails up x2.
--- NOTE | 2017-06-30 19:30 | NUR ---
PT AWAITING DISCHARGE AT THIS TIME. ALERT AWAKE WITH FAMILY MEMBER AT BEDSIDE. CONTINUE TO MONITOR. DENIES ANY PAIN OR DISCOMFORT. NO ACTIVE BLEEDING NOTED TO RIGHT LOWER LEG. CALL LIGHT WITHIN REACH. V/S ARE WNL.
[2017-06-30 20:19] VITALS: BP 110/48
--- NOTE | 2017-06-30 20:45 | NUR ---
DOPPLER SOUND NORMAL SOUNDS NOTED TO RIGHT PEDAL PULSE. DENIES ANY PAIN OR DISCOMFORT. AWAITING FOR DISCHARGE.
[2017-06-30] MEDS: DOCUSATE SODIUM 100 MG CAPSULE PO SCH (21:00)
--- NOTE | 2017-06-30 21:26 | NUR ---
PT DISCHARGE WITH ALL BELONGINGS ON HAND. REPORT GIVEN TO EMT. V/S ARE WNL. FAMILY MEMBER SON ASSISTING UPON TRANSPORTATION.
[2017-06-30] MEDS ORDERED: PROPOFOL 200 MG/20 ML BOTTLE IV ONE (21:30)
[2017-06-30] MEDS ORDERED: DEXAMETHASONE SOD PHOSPHATE 4 MG INJ IV ONE (21:30)
[2017-06-30] MEDS ORDERED: LIDOCAINE HCL 1% 20 ML VIAL MC ONE (21:30)
[2017-06-30] MEDS ORDERED: CEFAZOLIN 1 G VIAL MC ONE (21:30)
[2017-06-30] MEDS ORDERED: ONDANSETRON 4 MG/2 ML VIAL IV ONE (21:30)
[2017-06-30] MEDS ORDERED: DESFLURANE ANESTHESIA GAS 240 ML BOTTLE IH ONE (21:30)
[2017-06-30] MEDS ORDERED: CEFAZOLIN 1 G in PREMIXED 1 EACH IV SCH (22:00)
== END 2017-06-30 21:31 | disposition short-term general hospital (02) | DRG 951 ==
LOC: ER 21:20 → TELE 06-28 01:00 → MED 06-29 02:00
PROVIDERS: ADMIT Internal Medicine; ATTEND Internal Medicine
PROC: 0KN Muscles, Release (ICD-10-PCS; principal; 2017-06-28)
DX: T81.72XA Complication of vein following a procedure, not elsewhere classified, initial encounter (principal); N17.0 Acute kidney failure with tubular necrosis; I82.811 Embolism and thrombosis of superficial veins of right lower extremity; D69.6 Thrombocytopenia, unspecified; L03.115 Cellulitis of right lower limb; I50.32 Chronic diastolic (congestive) heart failure; M79.A21 Nontraumatic compartment syndrome of right lower extremity; M25.461 Effusion, right knee; I11.9 Hypertensive heart disease without heart failure; I08.1 Rheumatic disorders of both mitral and tricuspid valves; M16.11 Unilateral primary osteoarthritis, right hip; Y83.8 Other surgical procedures as the cause of abnormal reaction of the patient, or of later complication, without mention of misadventure at the time of the procedure; Y82.8 Other medical devices associated with adverse incidents; Y92.89 Other specified places as the place of occurrence of the external cause; M17.11 Unilateral primary osteoarthritis, right knee; K21.9 Gastro-esophageal reflux disease without esophagitis; D64.9 Anemia, unspecified; E66.9 Obesity, unspecified; Z68.32 Body mass index [BMI] 32.0-32.9, adult; F41.9 Anxiety disorder, unspecified; F30.9 Manic episode, unspecified; Z86.19 Personal history of other infectious and parasitic diseases; Z79.899 Other long term (current) drug therapy; Z90.49 Acquired absence of other specified parts of digestive tract; Z79.82 Long term (current) use of aspirin; I87.2 Venous insufficiency (chronic) (peripheral)
CPT/HCPCS: 36415; 70030-TC; 71045; 83605; 83735; 84100; 84443; 84550; 85025; 85651; 85730; 86140; 87040; 90732; 93005; A4649; A4663; J0330; J0690; J1100; J1650; J1885; J2270; J2405; J3010; J3480; J3490; Q9967

== ENCOUNTER 2017-10-02 18:23 | Emergency (ER) | payer OTHER, MEDICARE ==
[~2017-10-02] VITALS: Ht 162.6 cm; Wt 86.2 kg
[~2017-10-02 18:23] MED LIST changes: +ACET325T53 PO; -ASPI-618 PO; +ASPI81TA31 PO; +CEFA1PIG IV; -CYCL5TAB PO; -DEXL60CA3 PO; +DOCU100C36 PO; +ENOX40DI SQ; -FERR325T22 PO; -FURO20TA4 PO; +GABA-534 PO; -GABA-536 PO; +HYDR-3980 PO; +HYDR25TA86 PO; -LOSA50TA21 PO; +Morphine Sulfate Inj IV; +ONDA4VIA30 IV; +PANT40TA2 PO; +PENT400T12 PO; +PREG25CA PO
--- NOTE | 2017-10-02 20:21 | NUR ---
ULTRASOUND AT BEDSIDE AT THIS TIME
[2017-10-02] MEDS ORDERED: HYDROCODONE/APAP 5-325MG TABLET PO ONE (20:30)
[2017-10-02] MEDS ORDERED: HYDROCODONE/APAP 5-325MG TABLET ONE (20:33)
[2017-10-02 20:59] VITALS: BP 155/74
== END 2017-10-02 20:59 | disposition home or self-care (01) ==
LOC: ER 18:26
DX: M79.604 Pain in right leg (principal); I11.0 Hypertensive heart disease with heart failure; I50.9 Heart failure, unspecified; K21.9 Gastro-esophageal reflux disease without esophagitis; Z79.82 Long term (current) use of aspirin; Z79.891 Long term (current) use of opiate analgesic; Z79.899 Other long term (current) drug therapy
CPT/HCPCS: A4663

== ENCOUNTER 2018-07-02 12:37 | Emergency (ER) | payer MEDICARE, OTHER ==
[~2018-07-02] VITALS: Ht 162.6 cm; Wt 86.2 kg
[~2018-07-02 12:37] MED LIST changes: +ONDA4VIA23 IV; -ONDA4VIA30 IV
--- NOTE | 2018-07-02 13:14 | NUR ---
PT IS IN ROOM #2A. DR KRUSE EVALUATED THE PT.
--- NOTE | 2018-07-02 15:17 | NUR ---
PT WAS D/C'D TO HOME. D/C INSTRUCTIONS GIVEN TO THE PT AND TO HIS SON.
[2018-07-02 15:18] VITALS: BP 140/85
== END 2018-07-02 15:19 | disposition home or self-care (01) ==
LOC: ER 12:42
DX: G62.9 Polyneuropathy, unspecified (principal); I11.0 Hypertensive heart disease with heart failure; I50.9 Heart failure, unspecified; K21.9 Gastro-esophageal reflux disease without esophagitis; Z79.82 Long term (current) use of aspirin; Z79.899 Other long term (current) drug therapy
CPT/HCPCS: 73080; A4663

== ENCOUNTER 2019-02-19 14:25 | Inpatient (IN) | payer MEDICARE, OTHER ==
[~2019-02-19] VITALS: Ht 162.6 cm; Wt 75.8 kg
[~2019-02-19 14:25] MED LIST changes: -CEFA1PIG IV; -PENT400T12 PO; +PENT400T17 PO
[2019-02-19] MEDS ORDERED: FURO-152 PO (14:56)
--- NOTE | 2019-02-19 15:35 | NUR ---
PT IS IN ROOM #2A, DR JARAMILLO EVALUATED THE PT.
[2019-02-19 16:32] LABS: BASOPHILS % (AUTO) 0.4 % (0.0-2.0); EOSINOPHILS # (AUTO) 0.2 K/uL (0.0-0.7); EOSINOPHILS % (AUTO) 3.2 % (0.0-7.0); HEMATOCRIT 37.3 % (36.7-47.1); HEMOGLOBIN 12.4 g/dL (12.5-16.3); LYMPHOCYTES % (AUTO) 35.5 % (20.5-51.5); MEAN CORPUSCULAR HEMOGLOBIN 29.9 uug (23.8-33.4); MEAN CORPUSCULAR HGB CONC 33 g/dL (32.5-36.3); MEAN CORPUSCULAR VOLUME 90.3 fL (73.0-96.2); MONOCYTES # (AUTO) 0.4 K/uL (2.0-10.0); MONOCYTES % (AUTO) 7.2 % (0.0-11.0); NEUTROPHILS # (AUTO) 3.1 K/uL (1.8-8.9); NEUTROPHILS % (AUTO) 53.7 % (38.5-71.5); PLATELET COUNT (AUTO) 120 K/uL (152-348); RED BLOOD CELL COUNT(AUTO) 4.13 MIL/uL (4.06-5.63); WHITE BLOOD COUNT (AUTO) 5.7 K/uL (3.6-10.2)
[2019-02-19 16:53] LABS: BILIRUBIN,DIRECT 0.1 mg/dL (0.0-0.2); BILIRUBIN,TOTAL 0.6 mg/dL (0.2-1.0); TOTAL PROTEIN, SERUM 7.6 g/dL (6.4-8.2)
[2019-02-19] MEDS ORDERED: PIPERACILLIN SODIUM/TAZOBACTAM 3.375 G in IV DEXTROSE 5% 50 ML IV ONE (17:15)
[2019-02-19] MEDS ORDERED: VANCOMYCIN IV 1,000 MG in IV DEXTROSE 5% 250 ML IV ONE (17:15)
[2019-02-19] MEDS ORDERED: VANCOMYCIN IV 200 ML ONE (17:44)
[2019-02-19] MEDS ORDERED: MORPHINE SULFATE 2 MG/1 ML DISP.SYRIN IV PRN (18:15)
[2019-02-19] MEDS ORDERED: IV NORMAL SALINE 250 ML IV ONE (18:15)
[2019-02-19] MEDS ORDERED: Z GUARD REMEDY PASTE 57 GM TUBE TOP PRN (18:15)
[2019-02-19] MEDS ORDERED: ACETAMINOPHEN 325 MG TABLET PO PRN (18:15)
[2019-02-19] MEDS ORDERED: MAGNESIUM HYDROXIDE 30 ML LIQUID UDC PO PRN (18:15)
[2019-02-19] MEDS ORDERED: ONDANSETRON 4 MG/2 ML VIAL IV PRN (18:15)
--- NOTE | 2019-02-19 18:19 | NUR ---
report was given to betsey m/sarah.
[2019-02-19 18:59] VITALS: BP 134/74
--- NOTE | 2019-02-19 19:22 | NUR ---
CLINICAL PHARMACY NOTE:VANCOMYCIN DOSING request for vancomycin dosing on 83 y/o male 162.56 cm 90.7kg for cellulitis of right lower extremity. temp 98.2 BUN 16 SCr 1.0 WBC 5.7 also on Zosyn. Received vancomycin 1gm in ER Continue vancomycin 1250mg IVPB q18hr estimated trough 16.8. Will order trough level prior to 4 th dose. Will continue to monitor
--- NOTE | 2019-02-19 19:30 | NUR ---
Admitted 83y/o Male under the care of Ricardo HOLLAND. Dx: Cellulitis of RLE. Patient is A&Ox2-3, Persian speaking. Son at bedside. Patient is noted ambulatory. Admission protocol initiated. Oriented patient to his room and with the use of call light. Safety measures observed. Call light in reach
[2019-02-19 20:24] VITALS: BP 166/65
[2019-02-19] MEDS: HYDROCODONE/APAP 5-325MG TABLET PO PRN (20:27)
[2019-02-19] MEDS: ENOXAPARIN SODIUM 40 MG/0.4 ML DISP.SYRIN SQ SCH (20:29)
[2019-02-19 21:00] VITALS: BP 128/71
[2019-02-19] MEDS: PIPERACILLIN SODIUM/TAZOBACTAM 3.375 G in IV DEXTROSE 5% 50 ML IV SCH (23:36)
[2019-02-20] MEDS: PIPERACILLIN SODIUM/TAZOBACTAM 3.375 G in IV DEXTROSE 5% 50 ML IV SCH ×4 (05:10→23:40)
[2019-02-20] MEDS: PANTOPRAZOLE SODIUM 40 MG TABLET.DR PO SCH (06:09)
[2019-02-20 06:23] VITALS: BP 132/72
[2019-02-20 06:34] LABS: BASOPHILS % (AUTO) 0.5 % (0.0-2.0); EOSINOPHILS # (AUTO) 0.2 K/uL (0.0-0.7); EOSINOPHILS % (AUTO) 4.5 % (0.0-7.0); HEMATOCRIT 35.9 % (36.7-47.1); LYMPHOCYTES # (AUTO) 1.5 K/uL (20.0-40.0); LYMPHOCYTES % (AUTO) 33.6 % (20.5-51.5); MEAN CORPUSCULAR HEMOGLOBIN 29.4 uug (23.8-33.4); MEAN CORPUSCULAR HGB CONC 33 g/dL (32.5-36.3); MEAN CORPUSCULAR VOLUME 88.2 fL (73.0-96.2); MONOCYTES # (AUTO) 0.3 K/uL (2.0-10.0); NEUTROPHILS # (AUTO) 2.3 K/uL (1.8-8.9); NEUTROPHILS % (AUTO) 53.4 % (38.5-71.5); PLATELET COUNT (AUTO) 117 K/uL (152-348); RED BLOOD CELL COUNT(AUTO) 4.07 MIL/uL (4.06-5.63); WHITE BLOOD COUNT (AUTO) 4.4 K/uL (3.6-10.2)
[2019-02-20 06:55] LABS: CARBON DIOXIDE 32 mmol/L (21-32); CHLORIDE 105 mmol/L (98-107); CHOLESTEROL 150 mg/dL (<200); CREATININE 1.1 mg/dL (0.6-1.3); GLUCOSE 93 mg/dL (74-106); HDL CHOLESTEROL 29 mg/dL (40-60); PHOSPHOROUS 3.8 mg/dL (2.5-4.9); TRIGLYCERIDES 161 MG/DL (30-150); UREA NITROGEN, BLOOD 19 mg/dL (7-18)
[2019-02-20 07:27] LABS: THYROID STIMULATING HORMONE 4.342 mIU/mL (0.358-3.740)
[2019-02-20] MEDS: GABAPENTIN 300 MG CAPSULE PO SCH ×3 (08:08→17:23)
[2019-02-20] MEDS: ASPIRIN 81 MG TAB.CHEW PO SCH (08:08)
[2019-02-20] MEDS: PREGABALIN 25 MG CAPSULE PO SCH ×2 (08:08→17:23)
[2019-02-20] MEDS: HYDROCODONE/APAP 5-325MG TABLET PO PRN (08:09)
[2019-02-20] MEDS ORDERED: VANCOMYCIN IV 1,250 MG in IV DEXTROSE 5% 250 ML IV SCH (09:00)
--- NOTE | 2019-02-20 10:33 | NUR ---
Report received this morning. Pt AAOx2-3, able to make needs known in Pashto, primary language spoken in Hebrew. Pt compliant with administration of routine medications. Pain medication requested for 5/10 pain to right lower leg. No acute distress noted at this time. Pt assisted to restroom for voiding and returned to bed. Able to ambulate steadily, standby assist. Pt reported nausea with 1 episode of emesis. Zofran IV administered per PRN orders, reported effective at this time. Son and visiting at bedside. Pt teaching provided regarding current plan of care. Pt seen for wound consult and by TOOLROOM CLERK. New wound care orders received, will follow up as ordered. Bed in locked and lowest position, with side rails up and call light within reach.
--- NOTE | 2019-02-20 11:36 | NUR ---
CLINICAL PHARMACY NOTE:VANCOMYCIN DOSING S To continue vancomycin dosing on 83 y/o male for cellulitis of right lower extremity. O temp 98 BUN 19 SCr 1.1 WBC 4.4 ht 162 cm wt 75.8 kg Plan Patient received vanco 1gm on 02/19 at 1730. Will start vanco 125 mg IVPB q24h for predicted vanco trough level of 16 mcg/ml at steady state. 1st dose today at 1500. Will review renal function & adjust the dose if needed. Plan to order vanco trough level prior to 4 th dose (not yet ordered). Will continue to monitor
[2019-02-20 11:44] VITALS: BP 123/60
[2019-02-20] MEDS: VANCOMYCIN IV 1,250 MG in IV DEXTROSE 5% 250 ML IV SCH (15:38)
[2019-02-20 15:40] VITALS: BP 154/67
[2019-02-20 20:00] VITALS: BP 137/65
[2019-02-20] MEDS: CULTURELLE CAPSULE PO SCH (20:52)
[2019-02-20] MEDS: ENOXAPARIN SODIUM 40 MG/0.4 ML DISP.SYRIN SQ SCH (21:06)
[2019-02-21] MEDS: PIPERACILLIN SODIUM/TAZOBACTAM 3.375 G in IV DEXTROSE 5% 50 ML IV SCH ×2 (05:33→11:47)
[2019-02-21 06:01] VITALS: BP 149/70
[2019-02-21] MEDS: PANTOPRAZOLE SODIUM 40 MG TABLET.DR PO SCH (06:15)
[2019-02-21 06:54] LABS: CARBON DIOXIDE 33 mmol/L (21-32); CHLORIDE 105 mmol/L (98-107); CREATININE 1.2 mg/dL (0.6-1.3); GLUCOSE 101 mg/dL (74-106); POTASSIUM 4.3 mmol/L (3.5-5.1); UREA NITROGEN, BLOOD 17 mg/dL (7-18)
[2019-02-21 06:55] LABS: BASOPHILS % (AUTO) 0.4 % (0.0-2.0); EOSINOPHILS # (AUTO) 0.1 K/uL (0.0-0.7); HEMATOCRIT 36.6 % (36.7-47.1); HEMOGLOBIN 12.2 g/dL (12.5-16.3); LYMPHOCYTES # (AUTO) 1.2 K/uL (20.0-40.0); LYMPHOCYTES % (AUTO) 24.2 % (20.5-51.5); MEAN CORPUSCULAR HGB CONC 33 g/dL (32.5-36.3); MEAN CORPUSCULAR VOLUME 90.2 fL (73.0-96.2); MONOCYTES # (AUTO) 0.3 K/uL (2.0-10.0); MONOCYTES % (AUTO) 6.4 % (0.0-11.0); NEUTROPHILS # (AUTO) 3.2 K/uL (1.8-8.9); PLATELET COUNT (AUTO) 109 K/uL (152-348); RED BLOOD CELL COUNT(AUTO) 4.05 MIL/uL (4.06-5.63); WHITE BLOOD COUNT (AUTO) 4.9 K/uL (3.6-10.2)
--- NOTE | 2019-02-21 07:00 | NUR ---
Patient slept well. No complaints of pain throughout this shift. Compliant w/ meds and nursing care. All needs attended. Will endorse accordingly
--- NOTE | 2019-02-21 07:30 | NUR ---
Received patient awake in bed. AAOx3. Mainly Slovenian speaking; able to verbalize basic needs in Wolof. In no acute distress. Safety measures implemented. Will continue to monitor.
--- NOTE | 2019-02-21 07:45 | NUR ---
WOUND CARE CONSULT WOUND CARE RECEIVED CONSULT FOR RLE WOUND. WOUND CARE WILL DEFER CONSULT AND TREATMENT PLANS TO DPM DR DARBY SHE IS CURRENTLY FOLLOWING THIS PATIENT. PATIENT WITH ELLIOTT AT 22, WILL SEE PRN.
[2019-02-21] MEDS: CULTURELLE CAPSULE PO SCH ×2 (08:35→21:01)
[2019-02-21] MEDS: GABAPENTIN 300 MG CAPSULE PO SCH ×3 (08:35→16:40)
[2019-02-21] MEDS: ASPIRIN 81 MG TAB.CHEW PO SCH (08:35)
[2019-02-21] MEDS: PREGABALIN 25 MG CAPSULE PO SCH ×2 (08:35→16:40)
[2019-02-21] MEDS: HYDROCODONE/APAP 5-325MG TABLET PO PRN (08:36)
[2019-02-21 11:16] VITALS: BP 144/57
[2019-02-21] MEDS ORDERED: MAGNESIUM HYDROXIDE 30 ML LIQUID UDC PO PRN (11:45)
--- NOTE | 2019-02-21 12:32 | NUR ---
CLINICAL PHARMACY NOTE:VANCOMYCIN DOSING S To continue vancomycin dosing on 83 y/o male for cellulitis of right lower extremity. O temp 98 BUN 17 SCr 1.2 WBC 4.9 ht 162 cm wt 75.8 kg Plan Will continue vanco 125 mg IVPB q24h for predicted vanco trough level of 16 mcg/ml at steady state. 2nd dose today at 1500. Will review renal function & adjust the dose if needed. Plan to order vanco trough level prior to 4 th dose (not yet ordered). Will continue to monitor
[2019-02-21] MEDS ORDERED: BISACODYL 5 MG TABLET.DR PO ONE (14:30)
[2019-02-21 15:16] VITALS: BP 159/71
[2019-02-21] MEDS: VANCOMYCIN IV 1,250 MG in IV DEXTROSE 5% 250 ML IV SCH (15:51)
--- NOTE | 2019-02-21 18:08 | NUR ---
Patient complained of RLE pain and new onset lower back pain. Back pain not relived by PRN [place]. PRN Morphine administered; tolerated and verbalizes pain relief completely. In no acute distress at this time. No SOB noted. Comfort and safety provided at all times. Call light within reach. Will endorse care accordingly.
[2019-02-21 20:00] VITALS: BP 145/69
[2019-02-21] MEDS: ENOXAPARIN SODIUM 40 MG/0.4 ML DISP.SYRIN SQ SCH (21:00)
[2019-02-22 05:01] VITALS: BP 148/54
[2019-02-22] MEDS: PANTOPRAZOLE SODIUM 40 MG TABLET.DR PO SCH (06:10)
--- NOTE | 2019-02-22 07:56 | NUR ---
Received pt. resting in bed alert oriented x3, mainly danish speaking. Pt. denies SOB/ difficulty breathing. Pt. denies pain / discomfort. IV in R AC 20 gauge intact patent saline lock. Pt. on room air. Pt. states he had bowel movement yesterday during AM shift. Safety measures in place. call light within reach. Will continue to monitor pt.
[2019-02-22] MEDS: PREGABALIN 25 MG CAPSULE PO SCH (08:28)
[2019-02-22] MEDS: GABAPENTIN 300 MG CAPSULE PO SCH ×2 (08:28→12:41)
[2019-02-22] MEDS: ASPIRIN 81 MG TAB.CHEW PO SCH (08:29)
[2019-02-22] MEDS: CULTURELLE CAPSULE PO SCH (08:29)
--- NOTE | 2019-02-22 10:51 | NUR ---
Provided pt. with wound care. Applied xeroform and dry dressing to R lower leg. Spoke to son about updates on father. pt. awaiting to see doctor for updated plan of care. all needs met. pt. has no complaints. safety measures in place. call light within reach. will continue to monitor pt.
[2019-02-22 11:42] VITALS: BP 174/66
--- NOTE | 2019-02-22 11:52 | NUR ---
CLINICAL PHARMACY NOTE:VANCOMYCIN DOSING S To continue vancomycin dosing on 83 y/o male for cellulitis of right lower extremity. O temp 98.3 BUN 17 (02/21) SCr 1.2(02/21) WBC 4.9 ht 162 cm wt 75.8 kg Plan Will continue vanco 1250 mg IVPB q24h for predicted vanco trough level of 16 mcg/ml at steady state. 3rd dose today at 1500. Will review renal function & adjust the dose if needed. Plan to order vanco trough level prior to 4 th dose (ordered for tomorrow at 1430). Will continue to monitor
[2019-02-22] MEDS ORDERED: CEPH-570 PO (13:30)
--- NOTE | 2019-02-22 14:21 | NUR ---
spoke to case management with [employer]. She spoke to case management here regarding setting up home health for pt.
--- NOTE | 2019-02-22 15:53 | NUR ---
Pt. discharged in stable condition home with home health. Pt. discharged home via private car accompanied downstairs by DRY MIXER, , and son. ID band removed. IV site removed. Prescription given to pt. All discharge papers signed by pt. Copies made and put in binder. All belongings with pt. Belongings list signed. Pt.'s family requested xeroform and dry dressing to take home. Charge nurse said it was okay. Provided pt. with xeroform and dry dressing.
== END 2019-02-22 15:50 | disposition home or self-care (01) | DRG 603 ==
LOC: ER 14:25 → MEDSURG3 18:24
PROVIDERS: ADMIT Nurse Practitioner Acute Care; ATTEND Nurse Practitioner Acute Care
DX: L03.115 Cellulitis of right lower limb (principal); E87.2 Acidosis; L97.818 Non-pressure chronic ulcer of other part of right lower leg with other specified severity; S80.821A Blister (nonthermal), right lower leg, initial encounter; D69.6 Thrombocytopenia, unspecified; W57.XXXA Bitten or stung by nonvenomous insect and other nonvenomous arthropods, initial encounter; Y92.019 Unspecified place in single-family (private) house as the place of occurrence of the external cause; Z86.718 Personal history of other venous thrombosis and embolism; K21.9 Gastro-esophageal reflux disease without esophagitis; I87.2 Venous insufficiency (chronic) (peripheral); E66.9 Obesity, unspecified; G62.9 Polyneuropathy, unspecified; M19.90 Unspecified osteoarthritis, unspecified site; G89.29 Other chronic pain; B95.61 Methicillin susceptible Staphylococcus aureus infection as the cause of diseases classified elsewhere; D63.8 Anemia in other chronic diseases classified elsewhere; Z86.19 Personal history of other infectious and parasitic diseases; Z87.891 Personal history of nicotine dependence; Z82.49 Family history of ischemic heart disease and other diseases of the circulatory system; I10 Essential (primary) hypertension; Z86.79 Personal history of other diseases of the circulatory system
CPT/HCPCS: 36415; 70030-TC; 71045; 73590; 83605; 83735; 84100; 84443; 85025; 85730; 87040; 87070; 87077; 93005; A4663; G0378; J1650; J2270; J2405; J2543; J3370; J7050; J7060

== ENCOUNTER 2019-10-23 12:05 | Emergency (ER) | payer MEDICARE, OTHER ==
[~2019-10-23] VITALS: Ht 170.2 cm; Wt 90.7 kg
[~2019-10-23 12:05] MED LIST changes: +CEPH-570 PO; -DOCU100C36 PO; -ENOX40DI SQ; +FURO-152 PO; -HYDR-3980 PO; -Morphine Sulfate Inj IV; -ONDA4VIA23 IV; -PENT400T17 PO
--- NOTE | 2019-10-23 12:30 | NUR ---
Dr. Leal at bedside for MSE
[2019-10-23 13:22] LABS: BASOPHILS % (AUTO) 0.3 % (0.0-2.0); HEMOGLOBIN 12.4 g/dL (12.5-16.3); LYMPHOCYTES # (AUTO) 0.7 K/uL (20.0-40.0); LYMPHOCYTES % (AUTO) 23.9 % (20.5-51.5); MEAN CORPUSCULAR HGB CONC 34 g/dL (32.5-36.3); MEAN CORPUSCULAR VOLUME 86.2 fL (73.0-96.2); MONOCYTES # (AUTO) 0.2 K/uL (2.0-10.0); NEUTROPHILS % (AUTO) 67.8 % (38.5-71.5); PLATELET COUNT (AUTO) 113 K/uL (152-348); RED BLOOD CELL COUNT(AUTO) 4.29 MIL/uL (4.06-5.63)
[2019-10-23 13:31] LABS: CARBON DIOXIDE 24 mmol/L (21-32); CHLORIDE 100 mmol/L (98-107); CREATININE 1.8 mg/dL (0.6-1.3); GLUCOSE 104 mg/dL (74-106); POTASSIUM 3.3 mmol/L (3.5-5.1); UREA NITROGEN, BLOOD 40 mg/dL (7-18)
[2019-10-23 13:41] LABS: CREATINE KINASE, TOTAL 145 U/L (39-308)
[2019-10-23] MEDS ORDERED: IV NS 1000 ML 1,000 ML IV ONE (13:45)
[2019-10-23] MEDS ORDERED: IV NORMAL SALINE 500 ML BAG IV ONE (13:45)
[2019-10-23 13:54] LABS: *BILIRUBIN,URIN NEGATIVE (NEGATIVE); *BLOOD, URINE 2+ (NEGATIVE); *CLARITY,URINE CLEAR (CLEAR); *COLOR,URINE YELLOW (YELLOW); *KETONES,URINE NEGATIVE (NEGATIVE); *UROBILINOGEN,URINE 0.2 E.U./dl (NORMAL); LEUKOCYTE ESTERASE ,URINE NEGATIVE (NEGATIVE); NITRITE, URINE NEGATIVE (NEGATIVE); PH,URINE 5.5 (5.0-8.0); UGLUCOSE NEGATIVE (NEGATIVE)
[2019-10-23 14:10] LABS: ALANINE AMINOTRANSFERASE 30 U/L (16-63); ALKALINE PHOSPHATASE 50 U/L (50-136); ASPARTATE AMINOTRANSFERASE 50 U/L (15-37); BILIRUBIN,TOTAL 0.5 mg/dL (0.2-1.0); FERRITIN 1562 ng/mL (26-388); LACTATE DEHYDROGENASE 370 U/L (85-227); TOTAL PROTEIN, SERUM 7.8 g/dL (6.4-8.2)
[2019-10-23 15:12] VITALS: BP 151/68
--- NOTE | 2019-10-23 15:19 | NUR ---
dcd instruction given to pt' on, who will be taken his dad back home.
[2019-10-23 15:48] LABS: BACTERIA,URINE FEW /HPF (NONE SEEN); WBC,URINE 0-3 /HPF (0-3)
--- NOTE | 2019-10-23 15:55 | NUR ---
IV removed. Catheter intact and site benign. Pressure and 4x4 gauze applied to site. No bleeding noted. Patient discharged to home in stable condition. Written and verbal after care instructions given to son. Patient's son verbalizes understanding of instructions. Stressed follow up or return to ER for worsening s/s. NAD noted
[2019-10-29] MEDS ORDERED: FERR325T23 PO (11:45)
[2019-10-29] MEDS ORDERED: CEFD300C3 PO (11:45)
== END 2019-10-23 15:55 | disposition home or self-care (01) ==
LOC: ER 12:05
DX: U07.1 COVID-19 (principal); R51 Headache; E86.0 Dehydration; N28.9 Disorder of kidney and ureter, unspecified; I11.0 Hypertensive heart disease with heart failure; I50.9 Heart failure, unspecified; Z79.899 Other long term (current) drug therapy; K21.9 Gastro-esophageal reflux disease without esophagitis; Z86.718 Personal history of other venous thrombosis and embolism; Z79.82 Long term (current) use of aspirin; I70.0 Atherosclerosis of aorta
CPT/HCPCS: 36415; 70450; 71045; 80053; 81001; 82550; 82728; 83605; 83615; 83880; 84443; 84484; 85025; 85730; 86140; 87040 ×2; 93005; 96360; 99285; U0003; 70030-TC; A4663; J7040

== ENCOUNTER 2019-10-24 14:13 | Inpatient (IN) | payer OTHER, MEDICARE ==
[~2019-10-24] VITALS: Ht 170.2 cm; Wt 83.1 kg
[~2019-10-24 14:13] MED LIST changes: -ACET325T53 PO; -CEPH-570 PO
--- NOTE | 2019-10-24 14:49 | NUR ---
Patient son used for translation services. Environmental Designer services not available at this time.
--- NOTE | 2019-10-24 14:52 | NUR ---
[email or web address], medical screening exam in progress. Patient's adult son is with the patient. Patient speaks limited Setswana, mostly Estonian.
[2019-10-24 15:28] LABS: BASOPHILS % (AUTO) 0.2 % (0.0-2.0); EOSINOPHILS % (AUTO) 0.1 % (0.0-7.0); HEMATOCRIT 36.6 % (36.7-47.1); HEMOGLOBIN 12.2 g/dL (12.5-16.3); LYMPHOCYTES # (AUTO) 1.1 K/uL (20.0-40.0); LYMPHOCYTES % (AUTO) 27.7 % (20.5-51.5); MEAN CORPUSCULAR HEMOGLOBIN 28.8 uug (23.8-33.4); MEAN CORPUSCULAR HGB CONC 33 g/dL (32.5-36.3); MEAN CORPUSCULAR VOLUME 86.2 fL (73.0-96.2); MONOCYTES # (AUTO) 0.4 K/uL (2.0-10.0); MONOCYTES % (AUTO) 11.4 % (0.0-11.0); NEUTROPHILS # (AUTO) 2.4 K/uL (1.8-8.9); NEUTROPHILS % (AUTO) 60.6 % (38.5-71.5); PLATELET COUNT (AUTO) 125 K/uL (152-348); RED BLOOD CELL COUNT(AUTO) 4.24 MIL/uL (4.06-5.63); WHITE BLOOD COUNT (AUTO) 3.9 K/uL (3.6-10.2)
[2019-10-24 15:37] LABS: ALANINE AMINOTRANSFERASE 29 U/L (16-63); ALKALINE PHOSPHATASE 48 U/L (50-136); ASPARTATE AMINOTRANSFERASE 49 U/L (15-37); BILIRUBIN,DIRECT 0.2 mg/dL (0.0-0.2); BILIRUBIN,TOTAL 0.7 mg/dL (0.2-1.0); CARBON DIOXIDE 22 mmol/L (21-32); CHLORIDE 102 mmol/L (98-107); CREATININE 2.1 mg/dL (0.6-1.3); GLUCOSE 104 mg/dL (74-106); MAGNESIUM 1.9 mg/dL (1.8-2.4); POTASSIUM 3.5 mmol/L (3.5-5.1); TOTAL PROTEIN, SERUM 7.5 g/dL (6.4-8.2); UREA NITROGEN, BLOOD 28 mg/dL (7-18)
--- NOTE | 2019-10-24 16:08 | NUR ---
Calls to [employer] insurance for admission started by ER registration staff Antwan.
--- NOTE | 2019-10-24 16:32 | NUR ---
BREANNE FROM [employer] CALLED FOR SOMECLINICAL UPDATES
[2019-10-24] MEDS ORDERED: FUROSEMIDE 20 MG/2 ML VIAL IV ONE (16:45)
--- NOTE | 2019-10-24 16:48 | NUR ---
ISSAC FROM [facility] CALLED AND RECIEVED THE CLININCAL INFO
--- NOTE | 2019-10-24 16:56 | NUR ---
Received report from Melissa BARKLEY RN.
[2019-10-24] MEDS ORDERED: ENOXAPARIN SODIUM 100 MG/ML DISP.SYRIN SQ ONE (17:00)
[2019-10-24] MEDS ORDERED: FUROSEMIDE 20 MG/2 ML VIAL ONE (17:00)
--- NOTE | 2019-10-24 17:45 | NUR ---
1722pm: Fax confirmation received. This was requested by Libby, the patient's insurance [employer] supervisor case loading-transfer.
--- NOTE | 2019-10-24 17:53 | NUR ---
VQ scan is not allowed at this time 2/2 COVID pandemic. VQ scan has aerosolizing component.
[2019-10-24] MEDS ORDERED: MAG HYDROX/AL HYDROX/SIMETH 30 ML LIQUID UDC ONE (18:02)
[2019-10-24] MEDS ORDERED: LIDOCAINE VISCUS 2% 15 ML UDC ONE (18:02)
--- NOTE | 2019-10-24 18:13 | NUR ---
Still no timely response from [employer]. >1 hour passed, so this patient is going to be admitted to our hospital. [email or web address] [email or web address].
--- NOTE | 2019-10-24 18:21 | NUR ---
Patient is refusing repeat troponin draw, MD is aware. Hot dinner [email or web address].
--- NOTE | 2019-10-24 18:28 | NUR ---
Patient is eating hot dinner tray with good appetite.
[2019-10-24] MEDS ORDERED: MAG HYDROX/AL HYDROX/SIMETH 30 ML LIQUID UDC PO ONE (18:30)
[2019-10-24] MEDS ORDERED: LIDOCAINE VISCUS 2% 15 ML UDC MM ONE (18:30)
[2019-10-24] MEDS ORDERED: HYDROCODONE/APAP 5-325MG TABLET PO PRN (18:45)
[2019-10-24] MEDS ORDERED: MAGNESIUM HYDROXIDE 30 ML LIQUID UDC PO PRN (18:45)
[2019-10-24] MEDS ORDERED: Z GUARD REMEDY PASTE 57 GM TUBE TOP PRN (18:45)
[2019-10-24] MEDS ORDERED: ONDANSETRON 4 MG/2 ML VIAL IV PRN (18:45)
[2019-10-24] MEDS ORDERED: MORPHINE SULFATE 2 MG/1 ML DISP.SYRIN IV PRN (18:45)
[2019-10-24] MEDS ORDERED: hydrALAZINE HCL 25 MG TABLET PO PRN (18:45)
[2019-10-24] MEDS ORDERED: ZOLPIDEM 5 MG TABLET PO PRN (18:45)
--- NOTE | 2019-10-24 18:45 | NUR ---
Patient arrived in room 320. Will endorse to risk management intern nurse
--- NOTE | 2019-10-24 20:30 | NUR ---
patient was put on tele. Normal sinus at 79 bpm
[2019-10-24 20:36] VITALS: BP 123/68
[2019-10-24] MEDS: ENOXAPARIN SODIUM 100 MG/ML DISP.SYRIN SQ SCH (21:10)
[2019-10-25 00:12] VITALS: BP 125/62
[2019-10-25] MEDS: ACETAMINOPHEN 325 MG TABLET PO PRN (03:00)
[2019-10-25 04:22] VITALS: BP 130/86
[2019-10-25] MEDS: PANTOPRAZOLE SODIUM 40 MG TABLET.DR PO SCH (06:02)
[2019-10-25 07:34] LABS: BASOPHILS # (AUTO) 0.1 K/uL (0.0-8.0); BASOPHILS % (AUTO) 2.7 % (0.0-2.0); EOSINOPHILS % (AUTO) 0.2 % (0.0-7.0); HEMOGLOBIN 12.4 g/dL (12.5-16.3); LYMPHOCYTES # (AUTO) 1.1 K/uL (20.0-40.0); LYMPHOCYTES % (AUTO) 26.8 % (20.5-51.5); MEAN CORPUSCULAR HEMOGLOBIN 29.3 uug (23.8-33.4); MEAN CORPUSCULAR HGB CONC 33 g/dL (32.5-36.3); MEAN CORPUSCULAR VOLUME 87.6 fL (73.0-96.2); MONOCYTES # (AUTO) 0.5 K/uL (2.0-10.0); MONOCYTES % (AUTO) 12.3 % (0.0-11.0); NEUTROPHILS # (AUTO) 2.3 K/uL (1.8-8.9); PLATELET COUNT (AUTO) 128 K/uL (152-348); RED BLOOD CELL COUNT(AUTO) 4.23 MIL/uL (4.06-5.63)
[2019-10-25 07:52] LABS: IRON, SERUM 27 ug/dL (50-175)
[2019-10-25 08:18] LABS: ALANINE AMINOTRANSFERASE 30 U/L (16-63); ALKALINE PHOSPHATASE 44 U/L (50-136); ASPARTATE AMINOTRANSFERASE 58 U/L (15-37); BILIRUBIN,TOTAL 0.8 mg/dL (0.2-1.0); CARBON DIOXIDE 20 mmol/L (21-32); CHLORIDE 104 mmol/L (98-107); CHOLESTEROL 167 mg/dL (<200); CREATININE 1.6 mg/dL (0.6-1.3); GLUCOSE 94 mg/dL (74-106); HDL CHOLESTEROL 38 mg/dL (40-60); PHOSPHOROUS 3.3 mg/dL (2.5-4.9); POTASSIUM 3.8 mmol/L (3.5-5.1); TOTAL PROTEIN, SERUM 7.2 g/dL (6.4-8.2); TRIGLYCERIDES 154 MG/DL (30-150); UREA NITROGEN, BLOOD 30 mg/dL (7-18)
[2019-10-25 08:29] LABS: LIPASE 816 U/L (73-393)
[2019-10-25] MEDS: PREGABALIN 25 MG CAPSULE PO SCH ×2 (08:41→16:42)
[2019-10-25] MEDS: ASPIRIN 81 MG TAB.CHEW PO SCH (08:42)
[2019-10-25] MEDS: GABAPENTIN 300 MG CAPSULE PO SCH ×3 (08:42→16:42)
[2019-10-25] MEDS: FUROSEMIDE 20 MG/2 ML VIAL IV SCH (08:54)
[2019-10-25 12:31] VITALS: BP 123/51
--- NOTE | 2019-10-25 13:34 | NUR ---
Pt on tele, 69 NSR, no acute distress. Echo done. Gallbladder US done. Results pending. BRIDGE INSTRUCTOR contacted re diet orders to remove NPO status and placed back on cardiac diet. Pt remains NPO at this time. Original IV pulled out, will attempt to place a new 20 marvin. No acute distress. Pt compliant with medication and care provided. All needs safety and isolation precautions implemented. Will continue to monitor and follow up.
--- NOTE | 2019-10-25 15:50 | NUR ---
New order received to begin Pt on full liquid diet first if tolerated ok to upgrade to cardiac diet from AGRICULTURAL AND FORESTRY SUPERVISOR. Will implement, continue to monitor, and follow up accordingly.
[2019-10-25 16:22] VITALS: BP 121/52
--- NOTE | 2019-10-25 20:14 | NUR ---
Pt received into care while having a midline inserted by SKYELR Jacobsen. Pt is alert/oriented x2-3 and has no complaints of pain at this time. All safety and fall precaution measures are in place. Call light and personal items are within reach at all times. Will continue to monitor and assess.
[2019-10-25 20:17] VITALS: BP 139/88
[2019-10-25] MEDS: ENOXAPARIN SODIUM 100 MG/ML DISP.SYRIN SQ SCH (21:38)
[2019-10-25] MEDS: SOD FERRIC GLUC COMPLX/SUCROSE 125 MG in IV NORMAL SALINE 100 ML IV SCH (21:39)
--- NOTE | 2019-10-26 00:30 | NUR ---
This nurse was notified by HAZARD MITIGATION OFFICER that pt has an elevated temperature of 99.1 F. This nurse instituted cooling measures. Will continue to monitor and assess.
[2019-10-26 00:32] VITALS: BP 119/51
--- NOTE | 2019-10-26 01:15 | NUR ---
This nurse reevaluated pt's temperature after instituting cooling measures and found it to be still 99.1. This nurse will provide pt with Tylenol 650mg PO to assist in lowering body temperature. Will continue to monitor and assess.
[2019-10-26] MEDS: ACETAMINOPHEN 325 MG TABLET PO PRN ×2 (01:23→20:32)
--- NOTE | 2019-10-26 03:30 | NUR ---
This nurse reevaluated pt's temperature following cooling measures and PO Tylenol. Pt's temperature is now 98.3. Will continue to monitor and assess.
[2019-10-26 05:20] VITALS: BP 119/65
--- NOTE | 2019-10-26 06:00 | NUR ---
Patient slept throughout night with no complaints of pain or discomfort verbalized and no s/s of acute distress or discomfort noted/observed by this nurse. IV Ferrlecit provided as ordered and tolerated well by patient, with no adverse side effects verbalized and no s/s of acute distress or discomfort noted/observed by this nurse. All other prescribed medications provided as ordered and tolerated well, with no adverse side effects verbalized by pt or noted/observed by this nurse. LUCIA midline is patent, intact, and flushing well. All safety, fall, and isolation precautions remain in place. Call light and personal items remain within reach.
[2019-10-26] MEDS: PANTOPRAZOLE SODIUM 40 MG TABLET.DR PO SCH (06:33)
[2019-10-26 06:34] LABS: BASOPHILS % (AUTO) 0.2 % (0.0-2.0); EOSINOPHILS % (AUTO) 0.5 % (0.0-7.0); HEMATOCRIT 33.8 % (36.7-47.1); HEMOGLOBIN 11.5 g/dL (12.5-16.3); LYMPHOCYTES # (AUTO) 1.1 K/uL (20.0-40.0); LYMPHOCYTES % (AUTO) 38.6 % (20.5-51.5); MEAN CORPUSCULAR HEMOGLOBIN 29.4 uug (23.8-33.4); MEAN CORPUSCULAR HGB CONC 34 g/dL (32.5-36.3); MEAN CORPUSCULAR VOLUME 86.2 fL (73.0-96.2); MONOCYTES # (AUTO) 0.3 K/uL (2.0-10.0); MONOCYTES % (AUTO) 10.7 % (0.0-11.0); NEUTROPHILS # (AUTO) 1.5 K/uL (1.8-8.9); PLATELET COUNT (AUTO) 133 K/uL (152-348); RED BLOOD CELL COUNT(AUTO) 3.92 MIL/uL (4.06-5.63); WHITE BLOOD COUNT (AUTO) 2.9 K/uL (3.6-10.2)
[2019-10-26 06:48] LABS: ALANINE AMINOTRANSFERASE 23 U/L (16-63); ALKALINE PHOSPHATASE 48 U/L (50-136); ASPARTATE AMINOTRANSFERASE 36 U/L (15-37); BILIRUBIN,TOTAL 0.6 mg/dL (0.2-1.0); CARBON DIOXIDE 27 mmol/L (21-32); CHLORIDE 104 mmol/L (98-107); CREATINE KINASE, TOTAL 87 U/L (39-308); CREATININE 1.4 mg/dL (0.6-1.3); GLUCOSE 102 mg/dL (74-106); LIPASE 609 U/L (73-393); MAGNESIUM 1.6 mg/dL (1.8-2.4); POTASSIUM 3.5 mmol/L (3.5-5.1); TOTAL PROTEIN, SERUM 7.1 g/dL (6.4-8.2); UREA NITROGEN, BLOOD 32 mg/dL (7-18)
--- NOTE | 2019-10-26 07:30 | NUR ---
on bed, resting . no distress noted
[2019-10-26 09:00] VITALS: BP 119/65
[2019-10-26] MEDS: PREGABALIN 25 MG CAPSULE PO SCH ×2 (09:27→16:59)
[2019-10-26] MEDS: FUROSEMIDE 20 MG/2 ML VIAL IV SCH (09:27)
[2019-10-26] MEDS: ASPIRIN 81 MG TAB.CHEW PO SCH (09:27)
[2019-10-26] MEDS: GABAPENTIN 300 MG CAPSULE PO SCH ×3 (09:27→16:59)
--- NOTE | 2019-10-26 09:28 | NUR ---
seen by pt. able to walk by self, released to nursing.
[2019-10-26] MEDS: MAGNESIUM SULFATE/D5W 100 ML IV SCH ×2 (09:53→10:52)
[2019-10-26 11:33] VITALS: BP 119/62
[2019-10-26] MEDS ORDERED: FUROSEMIDE 40 MG/4 ML VIAL IV ONE (12:30)
--- NOTE | 2019-10-26 12:59 | NUR ---
medicated one time dose lasix sp cxr this am result. patient aware, will monitor for safety, fall risk due to frequent brp, verbalized understanding
[2019-10-26] MEDS: SOD FERRIC GLUC COMPLX/SUCROSE 125 MG in IV NORMAL SALINE 100 ML IV SCH (14:09)
[2019-10-26 15:10] VITALS: BP 123/60
--- NOTE | 2019-10-26 19:30 | NUR ---
RECEIVED PT IN NO ACUTE DISTRESS.COMPLIANT WITH CARE. SAFETY AND COMFORT PROVIDED. WILL CONTINUE TO MONITOR.
[2019-10-26 20:26] VITALS: BP 116/55
[2019-10-26] MEDS: ENOXAPARIN SODIUM 100 MG/ML DISP.SYRIN SQ SCH (22:19)
[2019-10-27] VITALS: BP 120/62
[2019-10-27 04:00] VITALS: BP 119/62
--- NOTE | 2019-10-27 06:35 | NUR ---
PT SLEPT COMFORTABLY. PT IN NO ACUTE DISTRESS. TALKED WITH HERMILA (SON) REGARDING PT WANTS HIS BLOOD TO BE DRAWN IN HIS MIDLINE. TRIED DRAWING BLOOD BUT ITS NOT SUCCESSFUL. WILL ENDORSE TO INCOMING NURSE TO DRAW THE BLOOD. INFORMED HERMILA THAT WE NEED URINE SAMPLE FROM HIS FATHER. HERMILA INTERPRET IT WITH HIS FATHER. PT UNDERSTOOD. SAFETY AND COMFORT PROVIDED.WILL ENDORSE TO INCOMING NURSE FOR CONTINUITY OF CARE.
[2019-10-27] MEDS: PANTOPRAZOLE SODIUM 40 MG TABLET.DR PO SCH (06:38)
--- NOTE | 2019-10-27 07:45 | NUR ---
Called son secondary to pt refusing blood draw. Son states that pt does not want to have any further blood draw. Discussed importance of having the lab draw for the drs needs and information. Son states that his dad continues for refused the blood draw this am. DR CONNORS notified.
--- NOTE | 2019-10-27 08:00 | NUR ---
Pt is in no acute distress. Pt syriac speaking but able to make simple needs known. Pt able to communicate with little Yoruba. Pt c/o abd pain. [facility] hospitalist aware and change diet to NPO. PT r/a with o2 sat of 96%. No c/o sob. Call light is within reach.
[2019-10-27 08:45] LABS: *BILIRUBIN,URIN NEGATIVE (NEGATIVE); *BLOOD, URINE 2+ (NEGATIVE); *CLARITY,URINE CLEAR (CLEAR); *COLOR,URINE YELLOW (YELLOW); *KETONES,URINE NEGATIVE (NEGATIVE); *UROBILINOGEN,URINE 0.2 E.U./dl (NORMAL); LEUKOCYTE ESTERASE ,URINE NEGATIVE (NEGATIVE); NITRITE, URINE NEGATIVE (NEGATIVE); UGLUCOSE NEGATIVE (NEGATIVE)
[2019-10-27 08:51] LABS: *CREATININE,URINE 110.4 mg/dL (30-125); *URINE TOTAL PROTEIN RANDOM 100.2 mg/dL (<150/24HR)
[2019-10-27] MEDS: FUROSEMIDE 20 MG/2 ML VIAL IV SCH (09:02)
[2019-10-27] MEDS: PREGABALIN 25 MG CAPSULE PO SCH ×2 (09:02→16:18)
[2019-10-27] MEDS: ASPIRIN 81 MG TAB.CHEW PO SCH (09:03)
[2019-10-27] MEDS: MAGNESIUM SULFATE/D5W 100 ML IV SCH ×2 (09:03→11:00)
[2019-10-27] MEDS: GABAPENTIN 300 MG CAPSULE PO SCH ×3 (09:03→16:18)
[2019-10-27 09:14] LABS: BACTERIA,URINE FEW /HPF (NONE SEEN); RBC,URINE 0-3 /HPF (0-3); SQUAMOUS EPITHELIAL CELL,UR FEW /HPF (NONE SEEN); WBC,URINE 0-3 /HPF (0-3)
[2019-10-27] MEDS: POTASSIUM CHLORIDE 50 ML IV SCH ×2 (11:00→12:07)
[2019-10-27 11:35] VITALS: BP 112/62
[2019-10-27 13:11] LABS: BASOPHILS % (AUTO) 0.4 % (0.0-2.0); EOSINOPHILS # (AUTO) 0.1 K/uL (0.0-0.7); EOSINOPHILS % (AUTO) 1.9 % (0.0-7.0); HEMATOCRIT 35.3 % (36.7-47.1); HEMOGLOBIN 11.8 g/dL (12.5-16.3); LYMPHOCYTES # (AUTO) 0.9 K/uL (20.0-40.0); LYMPHOCYTES % (AUTO) 23.4 % (20.5-51.5); MEAN CORPUSCULAR HEMOGLOBIN 28.7 uug (23.8-33.4); MEAN CORPUSCULAR HGB CONC 33 g/dL (32.5-36.3); MEAN CORPUSCULAR VOLUME 86.2 fL (73.0-96.2); MONOCYTES # (AUTO) 0.3 K/uL (2.0-10.0); MONOCYTES % (AUTO) 9.3 % (0.0-11.0); NEUTROPHILS # (AUTO) 2.4 K/uL (1.8-8.9); PLATELET COUNT (AUTO) 176 K/uL (152-348); RED BLOOD CELL COUNT(AUTO) 4.09 MIL/uL (4.06-5.63); WHITE BLOOD COUNT (AUTO) 3.7 K/uL (3.6-10.2)
[2019-10-27 13:16] LABS: CARBON DIOXIDE 27 mmol/L (21-32); CHLORIDE 103 mmol/L (98-107); CREATININE 1.4 mg/dL (0.6-1.3); GLUCOSE 116 mg/dL (74-106); POTASSIUM 3.4 mmol/L (3.5-5.1); UREA NITROGEN, BLOOD 27 mg/dL (7-18)
[2019-10-27 13:26] LABS: MAGNESIUM 2.5 mg/dL (1.8-2.4); PHOSPHOROUS 3.1 mg/dL (2.5-4.9)
[2019-10-27] MEDS ORDERED: VANCOMYCIN IV 1,000 MG in IV DEXTROSE 5% 250 ML IV ONE (13:30)
[2019-10-27] MEDS: SOD FERRIC GLUC COMPLX/SUCROSE 125 MG in IV NORMAL SALINE 100 ML IV SCH (14:35)
[2019-10-27] MEDS: PIPERACILLIN SODIUM/TAZOBACTAM 3.375 G in IV DEXTROSE 5% 50 ML IV SCH ×2 (14:37→20:25)
[2019-10-27] MEDS: ENOXAPARIN SODIUM 80 MG/0.8 ML DISP.SYRIN SQ SCH (14:44)
--- NOTE | 2019-10-27 15:00 | NUR ---
ID consult from KARIS BACON [employer] Notified of new abx given and ordered. Notified that UA sent earlier. New order received for urine and sputum culture. Notified pt not producing sputum.
[2019-10-27 16:00] VITALS: BP 125/61
--- NOTE | 2019-10-27 19:45 | NUR ---
Received patient awake and lying in bed. No signs of acute distress at this time. VS stable. O2 98% RA. Right midline patent and intact. Afebrile temp 98. Patient has a productive cough but denies SOB at this time. 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 Safety measures initiated and will continue to monitor.
[2019-10-27 20:07] VITALS: BP 113/68
--- NOTE | 2019-10-27 22:45 | NUR ---
Called and spoke to lab. Requested lab to release COVID results to [facility]. CLS to release results.
[2019-10-28 00:53] VITALS: BP 132/88
[2019-10-28] MEDS: PIPERACILLIN SODIUM/TAZOBACTAM 3.375 G in IV DEXTROSE 5% 50 ML IV SCH ×4 (02:42→20:24)
[2019-10-28 05:47] VITALS: BP 139/61
[2019-10-28] MEDS: PANTOPRAZOLE SODIUM 40 MG TABLET.DR PO SCH (06:04)
[2019-10-28 06:25] LABS: ABG BASE EXCESS 0.4 mmol/L; ABG HCO3 23.7 mmol/L; ABG PCO2 34.4 mmHg (35.0-45.0); ABG PH 7.456 (7.350-7.450); ABG PO2 70.1 mmHg (75.0-100.0); ABG SITE RIGHT RADIAL; ABG TOTAL HEMOGLOBIN 15.3 G/dL (13.5-18.0); COHb 1.3 % (0.5-1.5); MetHb 0.1 % (0.0-1.5); O2Hb 92.7 % (94.0-97.0); VENT MODE ROOM AIR
--- NOTE | 2019-10-28 06:27 | NUR ---
Patient slept throughout the night. No complaints of pain and denies SOB. No sign of acute distress. ekg monitor on and sinus rhythm. Right midline patent and intact. Safety measures maintained and will endorse patient in stable condition to oncoming staff.
[2019-10-28 06:52] LABS: BASOPHILS % (AUTO) 0.3 % (0.0-2.0); EOSINOPHILS # (AUTO) 0.1 K/uL (0.0-0.7); EOSINOPHILS % (AUTO) 3.9 % (0.0-7.0); HEMATOCRIT 34.5 % (36.7-47.1); HEMOGLOBIN 11.7 g/dL (12.5-16.3); MEAN CORPUSCULAR HEMOGLOBIN 29.3 uug (23.8-33.4); MEAN CORPUSCULAR HGB CONC 34 g/dL (32.5-36.3); MEAN CORPUSCULAR VOLUME 86.5 fL (73.0-96.2); MONOCYTES # (AUTO) 0.3 K/uL (2.0-10.0); MONOCYTES % (AUTO) 9.5 % (0.0-11.0); NEUTROPHILS % (AUTO) 58.3 % (38.5-71.5); PLATELET COUNT (AUTO) 175 K/uL (152-348); RED BLOOD CELL COUNT(AUTO) 3.99 MIL/uL (4.06-5.63); WHITE BLOOD COUNT (AUTO) 3.5 K/uL (3.6-10.2)
[2019-10-28 07:28] LABS: AMYLASE 151 U/L (25-115); CARBON DIOXIDE 28 mmol/L (21-32); CHLORIDE 105 mmol/L (98-107); CREATININE 1.5 mg/dL (0.6-1.3); FERRITIN 1759 ng/mL (26-388); GLUCOSE 104 mg/dL (74-106); LACTATE DEHYDROGENASE 289 U/L (85-227); MAGNESIUM 2.2 mg/dL (1.8-2.4); POTASSIUM 3.9 mmol/L (3.5-5.1); UREA NITROGEN, BLOOD 25 mg/dL (7-18)
[2019-10-28 07:39] LABS: LIPASE 491 U/L (73-393)
[2019-10-28 08:06] LABS: A/G RATIO 0.8 (0.7-1.7); ALBUMIN 2.7 g/dL (2.9-4.4); ALPHA-1-GLOBULIN 0.4 g/dL (0.0-0.4); ALPHA-2-GLOBULIN 1.3 g/dL (0.4-1.0); BETA GLOBULIN 0.7 g/dL (0.7-1.3); GAMMA GLOBULIN 1.2 g/dL (0.4-1.8); GLOBULIN, TOTAL 3.6 g/dL (2.2-3.9); M-SPIKE Not Observed g/dL (Not Observed)
[2019-10-28] MEDS: PREGABALIN 25 MG CAPSULE PO SCH ×2 (09:14→16:55)
[2019-10-28] MEDS: GABAPENTIN 300 MG CAPSULE PO SCH ×3 (09:14→16:55)
[2019-10-28] MEDS: ASPIRIN 81 MG TAB.CHEW PO SCH (09:14)
[2019-10-28] MEDS: ENOXAPARIN SODIUM 80 MG/0.8 ML DISP.SYRIN SQ SCH ×2 (09:16→20:24)
[2019-10-28 09:29] VITALS: BP 135/65
--- NOTE | 2019-10-28 10:41 | NUR ---
Received patient awake in bed in stable condition. Patient continue ATB therapy for COVID19+. no adverse reaction noted. Afebrile 97.7'F.SAO2- 97% room air. not in distress.Patient seen and examined by MD Clarke. no new order. will continue monitor
[2019-10-28] MEDS ORDERED: VANCOMYCIN IV 1,000 MG in IV DEXTROSE 5% 250 ML IV SCH (13:00)
[2019-10-28] MEDS: SOD FERRIC GLUC COMPLX/SUCROSE 125 MG in IV NORMAL SALINE 100 ML IV SCH (14:14)
[2019-10-28 16:01] VITALS: BP 129/58
--- NOTE | 2019-10-28 19:00 | NUR ---
Patient received in bed. Patient is AAOX3. Patient only speaks German, but can follow simple commands. Patient has no sign/symptoms of acute distress or pain at this time. Patient is afebrile and vitals stable. LUCIA midline is intact and patent, still on antibiotic therapy. Patient on room air saturating WNL. Safety measures in place. Bed low and locked in position.Call light within reach. Will continue with the plan of care.
[2019-10-28 20:07] VITALS: BP 130/60
[2019-10-29 00:27] VITALS: BP 115/61
[2019-10-29] MEDS: PIPERACILLIN SODIUM/TAZOBACTAM 3.375 G in IV DEXTROSE 5% 50 ML IV SCH ×2 (02:39→09:02)
[2019-10-29 04:00] VITALS: BP 128/72
[2019-10-29 06:08] LABS: BASOPHILS % (AUTO) 0.5 % (0.0-2.0); EOSINOPHILS # (AUTO) 0.2 K/uL (0.0-0.7); EOSINOPHILS % (AUTO) 4.4 % (0.0-7.0); HEMOGLOBIN 11.2 g/dL (12.5-16.3); LYMPHOCYTES # (AUTO) 0.8 K/uL (20.0-40.0); LYMPHOCYTES % (AUTO) 22.5 % (20.5-51.5); MEAN CORPUSCULAR HEMOGLOBIN 29.3 uug (23.8-33.4); MEAN CORPUSCULAR HGB CONC 34 g/dL (32.5-36.3); MEAN CORPUSCULAR VOLUME 86.2 fL (73.0-96.2); MONOCYTES # (AUTO) 0.3 K/uL (2.0-10.0); MONOCYTES % (AUTO) 8.8 % (0.0-11.0); NEUTROPHILS # (AUTO) 2.3 K/uL (1.8-8.9); NEUTROPHILS % (AUTO) 63.8 % (38.5-71.5); PLATELET COUNT (AUTO) 190 K/uL (152-348); RED BLOOD CELL COUNT(AUTO) 3.82 MIL/uL (4.06-5.63); WHITE BLOOD COUNT (AUTO) 3.6 K/uL (3.6-10.2)
[2019-10-29 06:29] LABS: CREATININE 1.3 mg/dL (0.6-1.3); MAGNESIUM 2.1 mg/dL (1.8-2.4); POTASSIUM 3.5 mmol/L (3.5-5.1)
[2019-10-29] MEDS: PANTOPRAZOLE SODIUM 40 MG TABLET.DR PO SCH (06:46)
--- NOTE | 2019-10-29 06:55 | NUR ---
Patient slept throughout the night. No sign of acute distress or pain at this time. SR 66 on tele monitor. Vitals stable, afebrile. LUCIA midline patent and intact. Comfort care and needs attended. Fall precaution maintained. Safety measures in place. Call light and personal belongings within reach. Bed low and locked in position. Will endorse to the oncoming nurse accordingly
--- NOTE | 2019-10-29 08:15 | NUR ---
received pt. resting in bed alert oriented x4. pt. has IV in R UA 18 gauge intact patent saline lock. pt. on tele monitor sinus rhythm pt. on room air saturating well. pt. states he has a headache. will provide pt. with PRN tylenol. pt. states he is not happy and wants to go home. spoke to son who also wants pt. to be discharged today will talk to hospitalist about plan of care. safety measures in place. call light within reach. will continue to monitor pt.
[2019-10-29] MEDS: PREGABALIN 25 MG CAPSULE PO SCH (09:00)
[2019-10-29] MEDS: GABAPENTIN 300 MG CAPSULE PO SCH ×2 (09:00→12:05)
[2019-10-29] MEDS: ASPIRIN 81 MG TAB.CHEW PO SCH (09:00)
[2019-10-29] MEDS: ENOXAPARIN SODIUM 80 MG/0.8 ML DISP.SYRIN SQ SCH (09:01)
[2019-10-29] MEDS: ACETAMINOPHEN 325 MG TABLET PO PRN (09:24)
[2019-10-29] MEDS ORDERED: FERR325T23 PO (11:45)
[2019-10-29] MEDS ORDERED: CEFD300C3 PO (11:45)
[2019-10-29 12:00] VITALS: BP 125/60
--- NOTE | 2019-10-29 12:45 | NUR ---
pt. is now on regular diet will see how pt. tolerates. so far pt. denies pain discomfort nausea vomiting. pt. states he has no pain and feels better. pt. will be discharged today if tolerates regular diet. pt. and son are aware of plan of care. will continue to monitor pt.
--- NOTE | 2019-10-29 14:09 | NUR ---
pt. discharged home. IV removed. ID band removed. all discharge paperwork signed and made copy of. son picked up pt. instructed son on new medication prescription and discharge plans. pt. stable
== END 2019-10-29 14:09 | disposition home or self-care (01) | DRG 282 ==
LOC: ER 14:16 → TELE3 18:32
PROVIDERS: ADMIT Nurse Practitioner Acute Care; ATTEND Registered Nurse
PROC: 05H533Z Insertion of Infusion Device into Right Subclavian Vein, Percutaneous Approach (ICD-10-PCS; principal; 2019-10-25)
PROC: B546ZZA Ultrasonography of Right Subclavian Vein, Guidance (ICD-10-PCS; principal; 2019-10-25)
DX: K85.90 Acute pancreatitis without necrosis or infection, unspecified (principal); U07.1 COVID-19; I13.0 Hypertensive heart and chronic kidney disease with heart failure and stage 1 through stage 4 chronic kidney disease, or unspecified chronic kidney disease; N18.9 Chronic kidney disease, unspecified; I50.33 Acute on chronic diastolic (congestive) heart failure; N17.0 Acute kidney failure with tubular necrosis; D61.818 Other pancytopenia; D63.8 Anemia in other chronic diseases classified elsewhere; E44.1 Mild protein-calorie malnutrition; E83.42 Hypomagnesemia; K21.9 Gastro-esophageal reflux disease without esophagitis; Z86.718 Personal history of other venous thrombosis and embolism; M19.90 Unspecified osteoarthritis, unspecified site; D68.69 Other thrombophilia; E88.09 Other disorders of plasma-protein metabolism, not elsewhere classified; R73.03 Prediabetes; Z68.28 Body mass index [BMI] 28.0-28.9, adult; J12.89 Other viral pneumonia; I87.2 Venous insufficiency (chronic) (peripheral)
CPT/HCPCS: 36415; 36600; 70030-TC; 71045; 71046; 83550; 83605; 83615; 83690; 83735; 83970; 84100; 84155; 84156; 84165; 84300; 85025; 85651; 85730; 86140; 87040; 87070; 87077; 87086; 87806; 93005; 93307; A4663; G0378; J1650; J1940; J2543; J2916; J3370; J3475; J3480; J3490; J7050; J7060

== ENCOUNTER 2020-08-02 18:04 | Emergency (ER) | payer MEDICARE, OTHER ==
[~2020-08-02] VITALS: Ht 170.2 cm; Wt 90.3 kg
[~2020-08-02 18:04] MED LIST changes: +CEFD300C3 PO; +FERR325T23 PO
[2020-08-02] MEDS ORDERED: IBUP-1955 PO (18:31)
[2020-08-02] MEDS ORDERED: HYDR-3980 PO (18:31)
--- NOTE | 2020-08-02 19:09 | NUR ---
Received patient from day shift nurse Kay. Received patient A/Ox4, in good spirits, no complaints of pain, no SOB, no signs of distress. Explained to the patient that we are waiting for ultrasound to be completed and pending the results, he may be discharged. Patient understood his plan of care.
[2020-08-02] MEDS ORDERED: FUROSEMIDE 20 MG TABLET ONE (19:40)
[2020-08-02 19:41] VITALS: BP 140/55
--- NOTE | 2020-08-02 19:42 | NUR ---
Patient discharged to home in stable condition. Written and verbal after care instructions given. Patient verbalizes understanding of instructions. Stressed follow up or return to ER for worsening s/s. Patient instructed to not take any additional Lasix today as he received it in the ER this visit. Instructed to resume his normal medication regimine tomorrow. Patient verbalized unserstanding as did family. Son verbalized follow up with his primary care physician. Patient discharged under his own power with a steady gait, no signs of SOB or distress.
[2020-08-02] MEDS ORDERED: FUROSEMIDE 20 MG TABLET PO ONE (19:45)
== END 2020-08-02 19:42 | disposition home or self-care (01) ==
LOC: ER 18:04
DX: I87.2 Venous insufficiency (chronic) (peripheral) (principal); I11.0 Hypertensive heart disease with heart failure; I50.9 Heart failure, unspecified; Z86.718 Personal history of other venous thrombosis and embolism; K21.9 Gastro-esophageal reflux disease without esophagitis; Z79.899 Other long term (current) drug therapy; Z79.82 Long term (current) use of aspirin
CPT/HCPCS: A4663

== ENCOUNTER 2020-08-21 17:56 | Emergency (ER) | payer MEDICARE, OTHER ==
[~2020-08-21] VITALS: Ht 170.2 cm; Wt 90.7 kg
[~2020-08-21 17:56] MED LIST changes: -CEFD300C3 PO; +HYDR-3980 PO; +IBUP-1955 PO
--- NOTE | 2020-08-21 18:10 | NUR ---
[email or web address], medical screening exam in progress
[2020-08-21] MEDS ORDERED: MORPHINE SULFATE 2 MG/1 ML DISP.SYRIN IM ONE (18:15)
[2020-08-21] MEDS ORDERED: MORPHINE SULFATE 2 MG/1 ML DISP.SYRIN ONE (18:20)
[2020-08-21 18:34] LABS: BASOPHILS # (AUTO) 0.1 K/uL (0.0-8.0); BASOPHILS % (AUTO) 1.3 % (0.0-2.0); EOSINOPHILS # (AUTO) 0.2 K/uL (0.0-0.7); EOSINOPHILS % (AUTO) 2.6 % (0.0-7.0); HEMOGLOBIN 10.7 g/dL (12.5-16.3); LYMPHOCYTES # (AUTO) 1.8 K/uL (20.0-40.0); LYMPHOCYTES % (AUTO) 30.1 % (20.5-51.5); MEAN CORPUSCULAR HEMOGLOBIN 31.2 uug (23.8-33.4); MEAN CORPUSCULAR HGB CONC 35 g/dL (32.5-36.3); MEAN CORPUSCULAR VOLUME 90.5 fL (73.0-96.2); MONOCYTES # (AUTO) 0.5 K/uL (2.0-10.0); MONOCYTES % (AUTO) 8.2 % (0.0-11.0); NEUTROPHILS # (AUTO) 3.5 K/uL (1.8-8.9); NEUTROPHILS % (AUTO) 57.8 % (38.5-71.5); PLATELET COUNT (AUTO) 114 K/uL (152-348); RED BLOOD CELL COUNT(AUTO) 3.43 MIL/uL (4.06-5.63)
[2020-08-21 18:40] LABS: CREATININE 1.2 mg/dL (0.6-1.3); POTASSIUM 3.9 mmol/L (3.5-5.1)
--- NOTE | 2020-08-21 18:41 | NUR ---
Dr [email or web address].
[2020-08-21 18:45] LABS: BILIRUBIN,DIRECT 0.1 mg/dL (0.0-0.2); BILIRUBIN,TOTAL 0.6 mg/dL (0.2-1.0); TOTAL PROTEIN, SERUM 7.5 g/dL (6.4-8.2)
[2020-08-21] MEDS ORDERED: BACITRACIN ZINC OINT 15 GM TUBE TOP STA (19:31)
[2020-08-21] MEDS ORDERED: BACITRACIN ZINC OINT 15 GM TUBE ONE (19:59)
[2020-08-21 20:04] VITALS: BP 141/77
--- NOTE | 2020-08-21 20:04 | NUR ---
Patient discharged to home in stable condition to the care of his son. Written and verbal after care instructions given to son. Son verbalizes understanding of instructions. Stressed follow up or return to ER for worsening s/s. Patient ambulates with steady gait with assistance of son, son took all discharge paperwork, V/S stable, son took all personal belongings of patient and patient with him.
== END 2020-08-21 20:04 | disposition home or self-care (01) ==
LOC: ER 18:01
DX: I87.2 Venous insufficiency (chronic) (peripheral) (principal); N28.9 Disorder of kidney and ureter, unspecified; S81.801A Unspecified open wound, right lower leg, initial encounter; X58.XXXA Exposure to other specified factors, initial encounter; Y92.89 Other specified places as the place of occurrence of the external cause; Z86.718 Personal history of other venous thrombosis and embolism; Z79.82 Long term (current) use of aspirin; Z79.899 Other long term (current) drug therapy; K21.9 Gastro-esophageal reflux disease without esophagitis; R73.03 Prediabetes; Z86.16 Personal history of COVID-19; I11.0 Hypertensive heart disease with heart failure; I50.9 Heart failure, unspecified; M19.90 Unspecified osteoarthritis, unspecified site
CPT/HCPCS: 36415; 80048; 80076; 85025; 85730; 93971; 96372; 99284; J2270; A4217; A4663

== ENCOUNTER 2022-08-30 19:38 | Emergency (ER) | payer MEDICARE, OTHER ==
[~2022-08-30] VITALS: Ht 165.1 cm; Wt 90.7 kg
--- NOTE | 2022-08-30 20:05 | NUR ---
PT AMB TO RM 1A WITH C/O RASH.
--- NOTE | 2022-08-30 20:24 | NUR ---
AT BEDSIDE FOR EVAL.
[2022-08-30] MEDS ORDERED: HYDR-3980 PO (20:40)
[2022-08-30] MEDS ORDERED: VALA100026 PO (20:40)
[2022-08-30] MEDS: HYDROCODONE/APAP 10-325 MG TABLET PO ONE (20:55)
[2022-08-30] MEDS ORDERED: HYDROCODONE/APAP 10-325 MG TABLET ONE (21:00)
--- NOTE | 2022-08-30 21:05 | NUR ---
PT A,A AND O X 3 WITH SHINGLES RASH PAIN 7 AND NAD OBSERVED.Patient discharged to home in stable condition. Written and verbal after care instructions given. Patient verbalizes understanding of instructions. Stressed follow up or return to ER for worsening s/s. PT AMB OUT WITH STEADY GAITWITH SON.
[2022-08-30 21:25] VITALS: BP 165/73
== END 2022-08-30 21:05 | disposition home or self-care (01) ==
LOC: ER 19:38
DX: B02.9 Zoster without complications (principal); I11.0 Hypertensive heart disease with heart failure; K21.9 Gastro-esophageal reflux disease without esophagitis; I50.9 Heart failure, unspecified; Z79.899 Other long term (current) drug therapy; Z79.82 Long term (current) use of aspirin
CPT/HCPCS: A4663

== ENCOUNTER 2022-11-17 16:04 | Emergency (ER) | payer MEDICARE, OTHER ==
[~2022-11-17] VITALS: Ht 165.1 cm; Wt 95.3 kg
[~2022-11-17 16:04] MED LIST changes: +VALA100026 PO
[2022-11-17 16:15] VITALS: O2SAT 98
[2022-11-17] MEDS ORDERED: diphenhydrAMINE 50 MG/1 ML VIAL IV ONE (16:45)
[2022-11-17] MEDS ORDERED: methylPREDNISolone SOD SUCC 40 MG/ML VIAL IV ONE (16:45)
[2022-11-17 16:48] LABS: BASOPHILS % (AUTO) 0.5 % (0.0-2.0); EOSINOPHILS # (AUTO) 0.2 K/uL (0.0-0.7); EOSINOPHILS % (AUTO) 3.4 % (0.0-7.0); HEMOGLOBIN 12.9 g/dL (12.5-16.3); LYMPHOCYTES # (AUTO) 1.4 K/uL (0.8-4.8); MEAN CORPUSCULAR HEMOGLOBIN 30.8 uug (23.8-33.4); MEAN CORPUSCULAR HGB CONC 34 g/dL (32.5-36.3); MEAN CORPUSCULAR VOLUME 90.6 fL (73.0-96.2); MONOCYTES # (AUTO) 0.4 K/uL (0.1-1.30); MONOCYTES % (AUTO) 7.1 % (0.0-11.0); NEUTROPHILS # (AUTO) 3.4 K/uL (1.8-8.9); PLATELET COUNT (AUTO) 129 K/uL (152-348); RED BLOOD CELL COUNT(AUTO) 4.19 MIL/uL (4.06-5.63); RED CELL DISTRIBUTION WIDTH 14.7 % (12.1-16.2); WHITE BLOOD COUNT (AUTO) 5.5 K/uL (3.6-10.2)
[2022-11-17] MEDS ORDERED: diphenhydrAMINE 50 MG/1 ML VIAL ONE (16:48)
[2022-11-17] MEDS ORDERED: methylPREDNISolone SOD SUCC 125 MG/2 ML VIAL ONE (16:49)
[2022-11-17 16:50] LABS: DIFFERENTIAL COMMENT 1
[2022-11-17 17:18] LABS: ALBUMIN 3.4 g/dL (3.4-5.0); BILIRUBIN,DIRECT 0.1 mg/dL (0.0-0.2); BILIRUBIN,TOTAL 0.6 mg/dL (0.2-1.0); CALCIUM 8.3 mg/dL (8.5-10.1); POTASSIUM 4.3 mmol/L (3.5-5.1); TOTAL PROTEIN, SERUM 7.1 g/dL (6.4-8.2)
[2022-11-17] MEDS ORDERED: DIPH25CA83 PO (18:01)
[2022-11-17] MEDS ORDERED: PRED20TA PO (18:01)
[2022-11-17] MEDS ORDERED: CEPH500T PO (18:01)
== END 2022-11-17 18:55 | disposition home or self-care (01) ==
LOC: ER 16:04
DX: R22.33 Localized swelling, mass and lump, upper limb, bilateral (principal); R07.89 Other chest pain; I11.0 Hypertensive heart disease with heart failure; I50.9 Heart failure, unspecified; K21.9 Gastro-esophageal reflux disease without esophagitis; Z86.73 Personal history of transient ischemic attack (TIA), and cerebral infarction without residual deficits; Z79.899 Other long term (current) drug therapy; Z79.82 Long term (current) use of aspirin
CPT/HCPCS: 99285; 96374; 71045; 96375; 80076; 80048; 83880; 85025; 87040 ×2; 36415; 93005; 83605; J1200; J2930; A4663

== ENCOUNTER 2022-11-21 10:03 | Inpatient (IN) | payer OTHER, MEDICARE ==
[~2022-11-21] VITALS: Ht 165.1 cm; Wt 87.1 kg
[~2022-11-21 10:03] MED LIST changes: +CEPH500T PO; +DIPH25CA83 PO; +PRED20TA PO
[2022-11-21 10:30] LABS: BASOPHILS # (AUTO) 0.2 K/UL (0.0-0.2); BASOPHILS % (AUTO) 1.8 % (0.0-2.0); EOSINOPHILS % (AUTO) 0.4 % (0.0-7.0); HEMATOCRIT 40.1 % (36.7-47.1); HEMOGLOBIN 13.3 g/dL (12.5-16.3); LYMPHOCYTES # (AUTO) 0.9 K/uL (0.8-4.8); LYMPHOCYTES % (AUTO) 7.1 % (20.5-51.5); MEAN CORPUSCULAR HEMOGLOBIN 30.4 uug (23.8-33.4); MEAN CORPUSCULAR HGB CONC 33 g/dL (32.5-36.3); MEAN CORPUSCULAR VOLUME 91.5 fL (73.0-96.2); MONOCYTES # (AUTO) 0.5 K/uL (0.1-1.30); MONOCYTES % (AUTO) 4.2 % (0.0-11.0); NEUTROPHILS # (AUTO) 10.5 K/uL (1.8-8.9); NEUTROPHILS % (AUTO) 86.5 % (38.5-71.5); PLATELET COUNT (AUTO) 125 K/uL (152-348); RED BLOOD CELL COUNT(AUTO) 4.38 MIL/uL (4.06-5.63); WHITE BLOOD COUNT (AUTO) 12.2 K/uL (3.6-10.2)
[2022-11-21 10:41] LABS: DIFFERENTIAL COMMENT 1
[2022-11-21 10:44] LABS: CALCIUM 8.3 mg/dL (8.5-10.1); CARBON DIOXIDE 29 mmol/L (21-32); CHLORIDE 104 mmol/L (98-107); CREATININE 1.2 mg/dL (0.6-1.3); GLUCOSE 98 mg/dL (74-106); POTASSIUM 4.1 mmol/L (3.5-5.1); SODIUM SERUM 142 mmol/L (136-145); UREA NITROGEN, BLOOD 26 mg/dL (7-18)
[2022-11-21] MEDS ORDERED: FUROSEMIDE 40 MG/4 ML VIAL IV ONE (10:45)
[2022-11-21] MEDS ORDERED: FUROSEMIDE 40 MG/4 ML VIAL ONE (10:45)
[2022-11-21 10:58] LABS: NT-PRO BNP 5085 pg/mL (0-125)
[2022-11-21] MEDS ORDERED: ASPIRIN 81 MG TAB.CHEW ONE (10:58)
[2022-11-21] MEDS ORDERED: ASPIRIN 81 MG TAB.CHEW PO ONE (11:00)
[2022-11-21] MEDS ORDERED: SWABABLE VALVE TRANSFER SET EA MC ONE (11:13)
[2022-11-21] MEDS ORDERED: IOHEXOL 350 100 ML INFUS..BTL ONE (11:13)
[2022-11-21] MEDS ORDERED: IV NORMAL SALINE 250 ML IV ONE (11:14)
[2022-11-21] MEDS ORDERED: ENOXAPARIN SODIUM 100 MG/ML DISP.SYRIN SQ ONE (13:15)
[2022-11-21 13:30] VITALS: BP 148/74; TEMP 98.5; O2SAT 95
[2022-11-21] MEDS ORDERED: MAGNESIUM HYDROXIDE 30 ML LIQUID UDC PO PRN (14:15)
[2022-11-21] MEDS ORDERED: ONDANSETRON 4 MG/2 ML VIAL IV PRN (14:15)
[2022-11-21] MEDS ORDERED: MORPHINE SULFATE 2 MG/1 ML DISP.SYRIN IV PRN (14:15)
[2022-11-21] MEDS ORDERED: ZOLPIDEM 5 MG TABLET PO PRN (14:15)
[2022-11-21] MEDS ORDERED: ACETAMINOPHEN 325 MG TABLET PO PRN (14:15)
[2022-11-21] MEDS ORDERED: REMEDY ESSENTIAL ZINC PASTE 113 GM TP PRN (14:15)
[2022-11-21] MEDS ORDERED: HYDROCODONE/APAP 5-325MG TABLET PO PRN (14:15)
[2022-11-21 15:06] VITALS: BP 152/70; TEMP 98.1; O2SAT 97
[2022-11-21] MEDS ORDERED: DIPH25CA83 PO (18:40)
[2022-11-21] MEDS ORDERED: CEPH500C2 PO (18:40)
[2022-11-21] MEDS ORDERED: HYDR-894 PO (18:45)
[2022-11-21] MEDS ORDERED: DICL75TA5 PO (18:57)
[2022-11-21] MEDS ORDERED: OMEP40CA21 PO (18:57)
[2022-11-21] MEDS ORDERED: PRED20TA PO (18:57)
[2022-11-21] MEDS ORDERED: PENT400T17 PO (18:59)
[2022-11-21] MEDS ORDERED: LOSA50TA39 PO (18:59)
[2022-11-21] MEDS ORDERED: ALLO300T2 PO (19:03)
[2022-11-21 19:56] VITALS: BP 127/65; TEMP 97.6; O2SAT 97
[2022-11-21] MEDS: ENOXAPARIN SODIUM 40 MG/0.4 ML DISP.SYRIN SQ SCH (20:49)
[2022-11-21] MEDS ORDERED: hydrALAZINE HCL 25 MG TABLET PO SCH (23:30)
[2022-11-21] MEDS ORDERED: GABAPENTIN 300 MG CAPSULE PO PRN (23:30)
[2022-11-21] MEDS ORDERED: DICLOFENAC 75 MG TABLET.DR PO PRN (23:30)
[2022-11-21] MEDS ORDERED: diphenhydrAMINE 25 MG CAP PO PRN (23:30)
[2022-11-21] MEDS ORDERED: HYDROCODONE/APAP 10-325 MG TABLET PO PRN (23:30)
[2022-11-21] MEDS ORDERED: ALLOPURINOL 300 MG TABLET PO PRN (23:30)
[2022-11-22] VITALS (7 sets, daily range): BP systolic 112–179; BP diastolic 60–86; TEMP 98–98.3; O2SAT 94–96
[2022-11-22 06:59] LABS: BASOPHILS % (AUTO) 0.2 % (0.0-2.0); EOSINOPHILS # (AUTO) 0.1 K/uL (0.0-0.7); EOSINOPHILS % (AUTO) 1.4 % (0.0-7.0); HEMATOCRIT 40.6 % (36.7-47.1); HEMOGLOBIN 13.7 g/dL (12.5-16.3); LYMPHOCYTES # (AUTO) 1.5 K/uL (0.8-4.8); LYMPHOCYTES % (AUTO) 21.9 % (20.5-51.5); MEAN CORPUSCULAR HEMOGLOBIN 30.7 uug (23.8-33.4); MEAN CORPUSCULAR HGB CONC 34 g/dL (32.5-36.3); MEAN CORPUSCULAR VOLUME 91.1 fL (73.0-96.2); MONOCYTES # (AUTO) 0.5 K/uL (0.1-1.30); MONOCYTES % (AUTO) 7.2 % (0.0-11.0); NEUTROPHILS # (AUTO) 4.9 K/uL (1.8-8.9); NEUTROPHILS % (AUTO) 69.3 % (38.5-71.5); PLATELET COUNT (AUTO) 116 K/uL (152-348); RED BLOOD CELL COUNT(AUTO) 4.46 MIL/uL (4.06-5.63); WHITE BLOOD COUNT (AUTO) 7.1 K/uL (3.6-10.2)
[2022-11-22] MEDS: PANTOPRAZOLE SODIUM 40 MG TABLET.DR PO SCH (07:06)
[2022-11-22 07:11] LABS: DIFFERENTIAL COMMENT 1
[2022-11-22 07:16] LABS: CALCIUM 8.3 mg/dL (8.5-10.1); CARBON DIOXIDE 29 mmol/L (21-32); CHLORIDE 102 mmol/L (98-107); CHOLESTEROL 143 mg/dL (<200); GLUCOSE 100 mg/dL (74-106); HDL CHOLESTEROL 47 mg/dL (40-60); MAGNESIUM 2.2 mg/dL (1.8-2.4); PHOSPHOROUS 4.7 mg/dL (2.5-4.9); SODIUM SERUM 137 mmol/L (136-145); TRIGLYCERIDES 170 MG/DL (30-150); UREA NITROGEN, BLOOD 24 mg/dL (7-18)
[2022-11-22 07:36] LABS: THYROID STIMULATING HORMONE 2.066 mIU/mL (0.358-3.740)
[2022-11-22] MEDS: LOSARTAN POTASSIUM 50 MG TABLET PO SCH (08:39)
[2022-11-22] MEDS: ASPIRIN 81 MG TAB.CHEW PO SCH (08:39)
[2022-11-22] MEDS: PENTOXIFYLLINE 400 MG TABLET.SA PO SCH (08:40)
[2022-11-22] MEDS ORDERED: Medication Not On Formulary EA (Omeprazole 40 MG) PO SCH (09:00)
[2022-11-22] MEDS ORDERED: FUROSEMIDE 40 MG/4 ML VIAL IV SCH (09:00)
[2022-11-22] MEDS ORDERED: FUROSEMIDE 20 MG TABLET PO SCH (09:00)
[2022-11-22] MEDS ORDERED: ASPIRIN 81 MG TAB.CHEW PO SCH (09:00)
[2022-11-22] MEDS: AMLODIPINE 5 MG TABLET PO SCH ×2 (18:04→21:00)
[2022-11-22] MEDS: FUROSEMIDE 40 MG/4 ML VIAL IV SCH (18:04)
[2022-11-22] MEDS: ENOXAPARIN SODIUM 40 MG/0.4 ML DISP.SYRIN SQ SCH (21:07)
[2022-11-23] MEDS: PANTOPRAZOLE SODIUM 40 MG TABLET.DR PO SCH (06:22)
[2022-11-23 08:11] LABS: BASOPHILS % (AUTO) 0.5 % (0.0-2.0); EOSINOPHILS # (AUTO) 0.2 K/uL (0.0-0.7); EOSINOPHILS % (AUTO) 2.6 % (0.0-7.0); HEMOGLOBIN 14.3 g/dL (12.5-16.3); LYMPHOCYTES # (AUTO) 1.5 K/uL (0.8-4.8); LYMPHOCYTES % (AUTO) 23.1 % (20.5-51.5); MEAN CORPUSCULAR HEMOGLOBIN 30.3 uug (23.8-33.4); MEAN CORPUSCULAR HGB CONC 33 g/dL (32.5-36.3); MEAN CORPUSCULAR VOLUME 90.9 fL (73.0-96.2); MONOCYTES # (AUTO) 0.5 K/uL (0.1-1.30); MONOCYTES % (AUTO) 7.6 % (0.0-11.0); NEUTROPHILS # (AUTO) 4.4 K/uL (1.8-8.9); NEUTROPHILS % (AUTO) 66.2 % (38.5-71.5); PLATELET COUNT (AUTO) 125 K/uL (152-348); RED BLOOD CELL COUNT(AUTO) 4.73 MIL/uL (4.06-5.63); RED CELL DISTRIBUTION WIDTH 15.1 % (12.1-16.2); WHITE BLOOD COUNT (AUTO) 6.6 K/uL (3.6-10.2)
[2022-11-23 08:20] LABS: CALCIUM 8.8 mg/dL (8.5-10.1); CARBON DIOXIDE 31 mmol/L (21-32); CHLORIDE 104 mmol/L (98-107); CREATININE 1.4 mg/dL (0.6-1.3); DIFFERENTIAL COMMENT 1; GLUCOSE 116 mg/dL (74-106); MAGNESIUM 2.3 mg/dL (1.8-2.4); PHOSPHOROUS 5.4 mg/dL (2.5-4.9); POTASSIUM 4.7 mmol/L (3.5-5.1); SODIUM SERUM 141 mmol/L (136-145); UREA NITROGEN, BLOOD 41 mg/dL (7-18)
[2022-11-23] MEDS: FUROSEMIDE 40 MG/4 ML VIAL IV SCH (09:26)
[2022-11-23] MEDS: AMLODIPINE 5 MG TABLET PO SCH ×2 (09:27→21:01)
[2022-11-23] MEDS: LOSARTAN POTASSIUM 50 MG TABLET PO SCH (09:27)
[2022-11-23] MEDS: ASPIRIN 81 MG TAB.CHEW PO SCH (09:27)
[2022-11-23] MEDS: PENTOXIFYLLINE 400 MG TABLET.SA PO SCH (09:28)
[2022-11-23 11:55] VITALS: BP 133/65; TEMP 97.7; O2SAT 98
[2022-11-23 16:00] VITALS: BP 143/71; TEMP 97.9; O2SAT 96
[2022-11-23 20:00] VITALS: BP 145/67; TEMP 97.7; O2SAT 95
[2022-11-23] MEDS: ENOXAPARIN SODIUM 40 MG/0.4 ML DISP.SYRIN SQ SCH (21:03)
[2022-11-24] VITALS: BP 138/69; TEMP 97.9; O2SAT 94
[2022-11-24 04:00] VITALS: BP 124/64; TEMP 98.4; O2SAT 97
[2022-11-24] MEDS: PANTOPRAZOLE SODIUM 40 MG TABLET.DR PO SCH (06:44)
[2022-11-24 07:30] LABS: BASOPHILS % (AUTO) 0.2 % (0.0-2.0); EOSINOPHILS # (AUTO) 0.2 K/uL (0.0-0.7); EOSINOPHILS % (AUTO) 2.7 % (0.0-7.0); HEMATOCRIT 42.9 % (36.7-47.1); HEMOGLOBIN 14.5 g/dL (12.5-16.3); LYMPHOCYTES # (AUTO) 1.8 K/uL (0.8-4.8); LYMPHOCYTES % (AUTO) 24.9 % (20.5-51.5); MEAN CORPUSCULAR HEMOGLOBIN 30.9 uug (23.8-33.4); MEAN CORPUSCULAR HGB CONC 34 g/dL (32.5-36.3); MEAN CORPUSCULAR VOLUME 91.5 fL (73.0-96.2); MONOCYTES # (AUTO) 0.5 K/uL (0.1-1.30); MONOCYTES % (AUTO) 7.3 % (0.0-11.0); NEUTROPHILS # (AUTO) 4.7 K/uL (1.8-8.9); NEUTROPHILS % (AUTO) 64.9 % (38.5-71.5); PLATELET COUNT (AUTO) 120 K/uL (152-348); RED BLOOD CELL COUNT(AUTO) 4.68 MIL/uL (4.06-5.63); RED CELL DISTRIBUTION WIDTH 15.1 % (12.1-16.2); WHITE BLOOD COUNT (AUTO) 7.2 K/uL (3.6-10.2)
[2022-11-24 07:34] LABS: DIFFERENTIAL COMMENT 1
[2022-11-24 07:38] LABS: CALCIUM 8.7 mg/dL (8.5-10.1); CARBON DIOXIDE 26 mmol/L (21-32); CHLORIDE 104 mmol/L (98-107); CREATININE 1.3 mg/dL (0.6-1.3); GLUCOSE 103 mg/dL (74-106); MAGNESIUM 2.3 mg/dL (1.8-2.4); PHOSPHOROUS 4.3 mg/dL (2.5-4.9); SODIUM SERUM 139 mmol/L (136-145); UREA NITROGEN, BLOOD 43 mg/dL (7-18)
[2022-11-24] MEDS: AMLODIPINE 5 MG TABLET PO SCH (09:03)
[2022-11-24] MEDS: PENTOXIFYLLINE 400 MG TABLET.SA PO SCH (09:03)
[2022-11-24] MEDS: LOSARTAN POTASSIUM 50 MG TABLET PO SCH (09:04)
[2022-11-24] MEDS: ASPIRIN 81 MG TAB.CHEW PO SCH (09:04)
[2022-11-24 12:00] VITALS: BP 123/64; TEMP 98.1; O2SAT 98
[2022-11-24] MEDS ORDERED: AMLO-212 PO (13:06)
[2022-11-24 16:31] VITALS: BP 104/54; TEMP 98; O2SAT 97
== END 2022-11-24 16:45 | disposition home or self-care (01) | DRG 194 ==
LOC: ER 10:03 → TELE3 13:09
PROVIDERS: ADMIT Student in an Organized Health Care Education/Training Program; ATTEND Student in an Organized Health Care Education/Training Program
DX: I11.0 Hypertensive heart disease with heart failure (principal); N17.0 Acute kidney failure with tubular necrosis; I21.A1 Myocardial infarction type 2; D69.6 Thrombocytopenia, unspecified; D64.9 Anemia, unspecified; E11.21 Type 2 diabetes mellitus with diabetic nephropathy; I50.33 Acute on chronic diastolic (congestive) heart failure; D72.829 Elevated white blood cell count, unspecified; K21.9 Gastro-esophageal reflux disease without esophagitis; Z86.16 Personal history of COVID-19; Z86.718 Personal history of other venous thrombosis and embolism; Z91.148 Patient's other noncompliance with medication regimen for other reason; Z79.899 Other long term (current) drug therapy; M89.8X9 Other specified disorders of bone, unspecified site; F41.9 Anxiety disorder, unspecified; R79.1 Abnormal coagulation profile; Z79.82 Long term (current) use of aspirin; T38.0X5A Adverse effect of glucocorticoids and synthetic analogues, initial encounter; Y92.89 Other specified places as the place of occurrence of the external cause; M17.11 Unilateral primary osteoarthritis, right knee; I34.0 Nonrheumatic mitral (valve) insufficiency; I87.2 Venous insufficiency (chronic) (peripheral); Z86.79 Personal history of other diseases of the circulatory system; Z98.890 Other specified postprocedural states; Z87.19 Personal history of other diseases of the digestive system
CPT/HCPCS: 36415; 71045; 71275; 74018; 76705; 83735; 84100; 84443; 84484; 85025; 85730; 93005; 93307; A4663; G0378; J1650; J1940; Q9967

== ENCOUNTER 2024-01-07 15:33 | Emergency (ER) | payer MEDICARE, OTHER ==
[~2024-01-07] VITALS: Ht 157.5 cm; Wt 86.2 kg
[~2024-01-07 15:33] MED LIST changes: +ALLO300T2 PO; +AMLO-212 PO; -CEPH500T PO; +DICL75TA5 PO; -FERR325T23 PO; +HYDR-894 PO; -HYDR25TA86 PO; -IBUP-1955 PO; +LOSA50TA39 PO; +OMEP40CA21 PO; -PANT40TA2 PO; +PENT400T17 PO; -PRED20TA PO; -PREG25CA PO; -VALA100026 PO
[2024-01-07 17:16] LABS: WHITE BLOOD COUNT (AUTO) 6.6 K/uL (3.6-10.2)
[2024-01-07 17:20] LABS: BASOPHILS % (AUTO) 0.5 % (0.0-2.0); DIFFERENTIAL COMMENT 0; EOSINOPHILS # (AUTO) 0.2 K/uL (0.0-0.7); EOSINOPHILS % (AUTO) 3.3 % (0.0-7.0); HEMATOCRIT 38.2 % (36.7-47.1); HEMOGLOBIN 12.7 g/dL (12.5-16.3); LYMPHOCYTES # (AUTO) 1.8 K/uL (0.8-4.8); LYMPHOCYTES % (AUTO) 26.6 % (20.5-51.5); MEAN CORPUSCULAR HEMOGLOBIN 30.7 uug (23.8-33.4); MEAN CORPUSCULAR HGB CONC 33 g/dL (32.5-36.3); MEAN CORPUSCULAR VOLUME 92.3 fL (73.0-96.2); MONOCYTES # (AUTO) 0.4 K/uL (0.1-1.30); MONOCYTES % (AUTO) 6.1 % (0.0-11.0); NEUTROPHILS # (AUTO) 4.2 K/uL (1.8-8.9); NEUTROPHILS % (AUTO) 63.5 % (38.5-71.5); PLATELET COUNT (AUTO) 109 K/uL (152-348); RED BLOOD CELL COUNT(AUTO) 4.14 MIL/uL (4.06-5.63); RED CELL DISTRIBUTION WIDTH 16.3 % (12.1-16.2)
[2024-01-07 17:21] LABS: CALCIUM 8.3 mg/dL (8.5-10.1); CARBON DIOXIDE 23 mmol/L (21-32); CHLORIDE 107 mmol/L (98-107); CREATININE 1.2 mg/dL (0.6-1.3); GLUCOSE 107 mg/dL (74-106); POTASSIUM 4.3 mmol/L (3.5-5.1); SODIUM SERUM 141 mmol/L (136-145); UREA NITROGEN, BLOOD 22 mg/dL (7-18)
[2024-01-07 17:30] LABS: ALANINE AMINOTRANSFERASE 20 U/L (16-63); ALBUMIN 3.5 g/dL (3.4-5.0); ALKALINE PHOSPHATASE 65 U/L (50-136); ASPARTATE AMINOTRANSFERASE 17 U/L (15-37); BILIRUBIN,DIRECT 0.3 mg/dL (0.0-0.2); BILIRUBIN,TOTAL 0.7 mg/dL (0.2-1.0); LIPASE 55 U/L (16-77); TOTAL PROTEIN, SERUM 7.2 g/dL (6.4-8.2)
[2024-01-07 17:35] LABS: *BILIRUBIN,URIN NEGATIVE (NEGATIVE); *CLARITY,URINE CLEAR (CLEAR); *COLOR,URINE YELLOW (YELLOW); *KETONES,URINE NEGATIVE (NEGATIVE); *PROTEIN,URINE 1+ (NEGATIVE); LEUKOCYTE ESTERASE ,URINE NEGATIVE (NEGATIVE); NITRITE, URINE NEGATIVE (NEGATIVE); PH,URINE 5.5 (5.0-8.0); UGLUCOSE NEGATIVE (NEGATIVE)
[2024-01-07 17:36] LABS: *BLOOD, URINE NEGATIVE (NEGATIVE)
[2024-01-07 17:37] LABS: RBC,URINE 0-3 /HPF (0-3); WBC,URINE 0-3 /HPF (0-3)
[2024-01-07] MEDS ORDERED: ACETAMINOPHEN 500 MG TABLET ONE (20:02)
[2024-01-07] MEDS: ACETAMINOPHEN 500 MG TABLET PO ONE (20:03)
[2024-01-07 20:26] VITALS: BP 138/60; TEMP 97.8; O2SAT 99
== END 2024-01-07 20:28 | disposition home or self-care (01) ==
LOC: ER 15:33
DX: R10.9 Unspecified abdominal pain (principal); I11.0 Hypertensive heart disease with heart failure; I50.9 Heart failure, unspecified; K21.9 Gastro-esophageal reflux disease without esophagitis; D64.9 Anemia, unspecified; D69.6 Thrombocytopenia, unspecified; Z79.891 Long term (current) use of opiate analgesic; Z79.82 Long term (current) use of aspirin; Z98.890 Other specified postprocedural states; Z79.899 Other long term (current) drug therapy
CPT/HCPCS: 36415; 71045; 83690; 84484; 85025; 85730; A4606; A4663; A9150

== ENCOUNTER 2024-12-24 22:22 | Inpatient (IN) | payer MEDICARE, OTHER ==
[~2024-12-24] VITALS: Ht 160 cm; Wt 71.9 kg
[2024-12-24 22:22] VITALS: BP 133/79
[2024-12-24] MEDS ORDERED: DIPH50CA38 PO (22:53)
[2024-12-24] MEDS ORDERED: POTA8TAB3 PO (22:53)
[2024-12-24] MEDS ORDERED: DICL100G31 TP (22:53)
[2024-12-24] MEDS ORDERED: CEPH500T PO (22:53)
[2024-12-24] MEDS ORDERED: ACET-73 PO (22:53)
[2024-12-24] MEDS ORDERED: DICL50TA9 PO (22:53)
[2024-12-25] MEDS ORDERED: ONDANSETRON 4 MG/2 ML VIAL ONE ×2 (00:38→03:27)
[2024-12-25] MEDS ORDERED: MORPHINE SULFATE 2 MG/1 ML DISP.SYRIN ONE (00:39)
[2024-12-25 00:40] LABS: PLATELET COUNT (AUTO) 154 K/uL (152-348); RED BLOOD CELL COUNT(AUTO) 4.21 MIL/uL (4.06-5.63); RED CELL DISTRIBUTION WIDTH 14.7 % (12.1-16.2); WHITE BLOOD COUNT (AUTO) 8.5 K/uL (3.6-10.2)
[2024-12-25 00:41] LABS: CREATININE 1.2 mg/dL (0.6-1.3); SODIUM SERUM 144 mmol/L (136-145); UREA NITROGEN, BLOOD 24 mg/dL (7-18)
[2024-12-25 00:47] LABS: ASPARTATE AMINOTRANSFERASE 13 U/L (15-37); TOTAL PROTEIN, SERUM 7.3 g/dL (6.4-8.2)
[2024-12-25] MEDS: MORPHINE SULFATE 2 MG/1 ML DISP.SYRIN IV ONE (01:06)
[2024-12-25] MEDS: ONDANSETRON 4 MG/2 ML VIAL IV ONE ×2 (01:06→03:38)
[2024-12-25] MEDS ORDERED: PANTOPRAZOLE SODIUM 40 MG VIAL ONE (03:28)
[2024-12-25] MEDS: PANTOPRAZOLE SODIUM IV 40 MG in IV DEXTROSE 5% 100 ML IV ONE (03:38)
[2024-12-25] MEDS ORDERED: REMEDY ESSENTIAL ZINC PASTE 113 GM TP PRN (05:00)
[2024-12-25] MEDS ORDERED: ONDANSETRON 4 MG/2 ML VIAL IV PRN (05:00)
[2024-12-25] MEDS ORDERED: MAGNESIUM HYDROXIDE 30 ML LIQUID UDC PO PRN (05:00)
[2024-12-25] MEDS: PANTOPRAZOLE SODIUM 40 MG TABLET.DR PO SCH (06:52)
[2024-12-25] MEDS: ENOXAPARIN SODIUM 40 MG/0.4 ML DISP.SYRIN SQ ONE (07:35)
[2024-12-25] MEDS: VANCOMYCIN IV 1,000 MG in IV DEXTROSE 5% 250 ML IV ONE (07:35)
[2024-12-25 08:13] VITALS: BP 141/80; TEMP 98; O2SAT 95
[2024-12-25] MEDS: ENOXAPARIN SODIUM 40 MG/0.4 ML DISP.SYRIN SQ SCH (08:41)
[2024-12-25] MEDS: VANCOMYCIN IV 1,250 MG in IV DEXTROSE 5% 250 ML IV SCH (08:44)
[2024-12-25 10:54] VITALS: BP 133/83; TEMP 98.2; O2SAT 96
[2024-12-25 15:13] VITALS: BP 149/89; TEMP 97.6; O2SAT 99
[2024-12-25] MEDS: ARGININE/GLUTAMINE/CALCIUM BMB 1 EACH POWD.PACK PO SCH (16:01)
[2024-12-25 19:45] VITALS: BP 146/67; TEMP 98; O2SAT 98
[2024-12-25] MEDS: ACETAMINOPHEN 325 MG TABLET PO PRN (21:26)
[2024-12-26 06:19] VITALS: BP 144/61; TEMP 98.1; O2SAT 97
[2024-12-26 06:55] LABS: PLATELET COUNT (AUTO) 138 K/uL (152-348); RED BLOOD CELL COUNT(AUTO) 3.97 MIL/uL (4.06-5.63); RED CELL DISTRIBUTION WIDTH 14.8 % (12.1-16.2); WHITE BLOOD COUNT (AUTO) 5.1 K/uL (3.6-10.2)
[2024-12-26 07:03] LABS: CREATININE 1.2 mg/dL (0.6-1.3); SODIUM SERUM 143 mmol/L (136-145); UREA NITROGEN, BLOOD 26 mg/dL (7-18)
[2024-12-26 11:41] VITALS: BP 136/56; TEMP 97.8; O2SAT 96
[2024-12-26 16:34] VITALS: BP 135/63; TEMP 97.8; O2SAT 98
[2024-12-26] MEDS ORDERED: VANC1.257 IV (17:49)
[2024-12-26] MEDS ORDERED: SILV50CR32 TP (17:49)
[2024-12-26] MEDS: SILVER SULFADIAZINE 1% CREAM 50 GM TP SCH (19:12)
[2024-12-26 20:49] VITALS: BP 129/75; TEMP 99.5; O2SAT 99
[2024-12-27 06:35] VITALS: BP 132/68; TEMP 98.5; O2SAT 98
[2024-12-27 07:50] LABS: CREATININE 1.0 mg/dL (0.6-1.3); SODIUM SERUM 143 mmol/L (136-145); UREA NITROGEN, BLOOD 29 mg/dL (7-18)
[2024-12-27] MEDS ORDERED: DOXY100T2 PO (12:04)
[2024-12-27] MEDS: DOXYCYCLINE HYCLATE 100 MG TABLET PO SCH (16:38)
== END 2024-12-27 17:40 | disposition home health service (06) | DRG 602 ==
LOC: ER 22:34 → MEDSURG3 12-25 05:30 → UNDODISIN 12-27 17:40
PROVIDERS: ADMIT Student in an Organized Health Care Education/Training Program; ATTEND Nurse Practitioner Acute Care
PROC: 05HB33Z Insertion of Infusion Device into Right Basilic Vein, Percutaneous Approach (ICD-10-PCS; principal; 2024-12-26)
DX: L03.115 Cellulitis of right lower limb (principal); I50.33 Acute on chronic diastolic (congestive) heart failure; L97.828 Non-pressure chronic ulcer of other part of left lower leg with other specified severity; L97.821 Non-pressure chronic ulcer of other part of left lower leg limited to breakdown of skin; I74.09 Other arterial embolism and thrombosis of abdominal aorta; L03.116 Cellulitis of left lower limb; I70.291 Other atherosclerosis of native arteries of extremities, right leg; I70.202 Unspecified atherosclerosis of native arteries of extremities, left leg; I11.0 Hypertensive heart disease with heart failure; I83.028 Varicose veins of left lower extremity with ulcer other part of lower leg; Z87.891 Personal history of nicotine dependence; Z98.42 Cataract extraction status, left eye; Z98.41 Cataract extraction status, right eye; Z86.718 Personal history of other venous thrombosis and embolism; E78.5 Hyperlipidemia, unspecified; K21.9 Gastro-esophageal reflux disease without esophagitis; R60.0 Localized edema; R20.2 Paresthesia of skin; I70.203 Unspecified atherosclerosis of native arteries of extremities, bilateral legs; F40.248 Other situational type phobia
CPT/HCPCS: 36415; 71045; 72131; 83605; 83735; 84100; 84484; 85025; 87040; A4606; A4663; G0378; J1650; J2270; J2405; J2470; J3373; J7040; J7050